=== PATIENT | male | born 1935 | race Caucasian/White ===

== ENCOUNTER 2020-03-16 12:17 | Observation (INO) | payer MEDICARE, SELFPAY ==
[2020-03-15 10:15] VITALS: BMI 26.3
[2020-03-16] VITALS (18 sets, daily range): BP systolic 140–192; BP diastolic 68–92; PULSE 57–74; RESP 7–21; TEMP 36.6–36.7; O2SAT 93–97
[2020-03-16] MEDS: diphenhydrAMINE 50 mg Capsule PO (07:44)
[2020-03-16 07:54] LABS: Basophils % 0.6 %; Eosinophils # 0.1 10^3/uL (0.0-0.8); Eosinophils % 1.5 %; Hemoglobin 14.6 g/dL (11.7-16.6); Lymphocytes # 2.1 10^3/uL (0.8-4.8); Lymphocytes % 31.4 %; Mean Corpuscular Hemoglobin 32.4 pg (28.0-34.0); Mean Corpuscular Volume 95.6 fL (80-94); Monocytes # 0.6 10^3/uL (0.2-0.9); Monocytes % 8.6 %; Neutrophils # 3.9 10^3/uL (1.8-7.7); Neutrophils % 57.6 %; Nucleated Red Blood Cells % 0 %; Platelet Count 226 10^3/cmm (130-400); Red Cell Distribution Width 13.9 % (12.1-15.1); White Blood Count 6.7 10^3/uL (4.0-10.0)
[2020-03-16 08:22] LABS: Anion Gap 17.9 (5-19); Blood Urea Nitrogen 17 mg/dL (8-23); Calcium 9.6 mg/dL (8.5-10.5); Carbon Dioxide 23 mmol/L (22-29); Chloride 103 mmol/L (98-107); Glucose 107 mg/dL (65-115); Osmolality Calculated 287 mOsm/kg (285-295); Potassium 3.9 mmol/L (3.5-5.1); Sodium 140 mmol/L (136-145)
--- NOTE | 2020-03-16 08:30 | XACV_ITS ---
Wt: 76 kg BSA: 1.91 m2 Any Known Allergies: No known allergies Gender: Male : 1935 Exam Type: Invasive Peripheral Vascular Procedure(s): Procedure Description: Peripheral Cath Diagnostic Procedure Procedure Description: Abdominal aortic angiography Procedure Description: Lower extremities' angiography Exam Priority: Routine Abdominal Diagnostic Findings The abdominal aorta is severely diffusely diseased with heavily laden plaque throughout, mild aneurysmal dilatations and heavy calcification. Lower Extremity Diagnostic Findings Elderly patient with claudication on the right. Noninvasive studies abnormal. Recommended for angiography. Patient is Fulton grade 1, category 3; Maryam stage II. On the right, there is a 60% eccentric stenosis of the ostium of the right common iliac. Otherwise there is moderate diffuse plaquing. The vessel is heavily calcified. The internal iliac is occluded at the origin. The external iliac is patent but heavily calcified and mildly diffusely diseased. The common femoral is heavily calcified and mildly diffusely diseased with no significant stenoses. The superficial femoral artery is occluded at its origin. The profunda femoris is patent and provides the collateral flow to the distal portion of the leg. The superficial femoral artery reconstitutes via collaterals in the distal leg. The popliteal is normal. The anterior tibial is normal and extends all the way to the ankle. The tibial peroneal trunk is patent. The posterior tibial is normal and extends all the way to the ankle. The peroneal is a very small vessel but is patent at least two th[address] way down the leg. Lower Extremity Interventional Findings I was able to pass a wire down the vessel and most likely into the superficial femoral artery from the left common femoral artery around the aortic bifurcation and down. Unfortunately, I was unable to pass a long sheath around the aortic bifurcation due to the heavy calcification, diffuse disease and the eccentric stenosis of the ostial right common iliac. Conclusions Occluded SFA on the right. Heavily calcified and severely diffusely diseased vessels. Unable to pass a long sheath around the aortic bifurcation. Recommendations Return for a popliteal approach on the right. Hemodynamic Data Phase:Rest AO : 139.0 mmHg / 55.0 mmHg ( 88.0 mmHg ) @ 4:15:00 AM 145.0 mmHg / 61.0 mmHg ( 94.0 mmHg ) @ 4:41:00 AM Access Site Site: Left Femoral artery Sheath Size: 6 Fr Hemost... Method: Manual Compression Hemost... Success: Successful Procedure Details Findings Procedure Consent Obtained. Pre-Procedure Time Out. Identified patient by full name and date of as verbalized by the patient/guarantor. Does the consent match the physician's order: Yes. Accurate & Complete Informed Consent: Yes. Inpatient/Outpatient History & Physical on Chart: Yes. If H&P is completed, is and addenduem needed: No; If yes, is the addendum complete: N/A. Visualize and Verify Site with Patient/Guarantor: N/A. Relevant Radiology Images available: N/A. Pre-op teaching completed and patient verbalized understanding. The risks, benefits, and alternatives of sedation and/or procedure were discussed by physician. The patient agrees to continue. Procedure started. Correct patient, site and procedure confirmed by cath team. PERRLA. Strong, equal hand tracer bullet section supervisor bilaterally. Lungs clear x 5 lobes. IV Site on Arrival: 18 gauge in the right forearm. IV Fluids: 0.9% NaCl at KVO. 0 mL infused prior to terrazzo laborer. Pre Procedural Pulses: bilateral dorsalis pedis was Doppled. Pre Procedural Pulses: bilateral posterior tibial was Doppled. Pre Procedural Pulses: right radial was 2+. Oxygen started at 2liters/min via nasal canula. bilateral groins was prepped with chloroprep then draped in the usual sterile fashion. Baseline sample Acquired. HR: 51 BPM. Physician arrived. Equipment: Peripheral. Cardiac Cath Pack. ACIST Manifold Kit Model BT 2000. Heparinized Saline (2 units/mL), 1000 mL bag. Inventory is JJ 6F 11cm Funmilayo Plus Sheath. Physician scrubbed in. Immediate Pre-Procedure Time Out. Correct Patient: Yes; Correct Procedure: Yes; Correct Site: Yes; Correct Patient Position: Yes; Correct Supplies: Yes; Dried Flammable Prep: Yes; Blood Products Available: N/A;. Lidocaine 1% infiltrated to the left groin. Arterial access obtained. A CORDIS 5F UF catheter 65cm was advanced over the wire and used for Abdominal aortogram. Abdominal aortogram performed in AP @ 10 mL/sec for a total of 30 mL. Glidewire inserted. Catheter removed over the glide wire. A JJ 5F RIM 65 cm Diagnostic Catheter was advanced over the wire and used for Lower extremity arteriography. Wrist reminders placed bilaterally on patient. Right leg runoff 10 ml for total of 30 ml. Glidewire inserted. Catheter removed over the glide wire. A 6FrFr IM catheter in over wire. Catheter removed over the glide wire. Short 6 fr sheath exchanged for long 45 cm 6 fr Flexor sheath. Flexor sheath unable to advance. Removed over wire. Short 6 fr sheath re-inserted. Left leg runoff through sheath 10 ml for total of 30 ml. Physician scrubbed out. A Manual Compression was successful obtaining hemostatsis at the Left Femoral artery insertion site. Sheath(s) removed and manual pressure held until hemostasis was achieved. Sterile 4x4 and Op-site applied to the puncture site. No oozing or hematoma noted. Post sheath removal instructions were given and the patient verbalized understanding. Post Procedure: Pulses reassessed and unchanged. PERRLA. Strong, equal hand tracer bullet section supervisor bilaterally. No VTE prophylaxis required. Total IV fluids: 56.65 mL. Contrast type used: Visipaque 320 mgI/mL, 500 mL bottle. Complications: none. Post-op diagnosis: PAD. Estimated blood loss: 5mL-10mL. Procedure completed. Medication's Wasted: Lidocaine 1% = 10 mL. Medication's Wasted: Heparin = 1000 units. Medication's Wasted: Other = fentanyl 75 mcg. Patient transferred by stretcher to CPRU. Vital chart was stopped. Procedure Medications Start: 9:03 AM Stop: 9:03 AM Medication: Versed Amount: 1 mg Route: I.V. Start: 9:04 AM Stop: 9:04 AM Medication: Fentanyl Amount: 25 mcg Route: I.V. Start: 9:39 AM Stop: 9:39 AM Medication: Versed Amount: 1 mg Route: I.V. I, the attending physician, have reviewed and verified all procedure medications. Yes, all medications given per verbal order History/Risk Factors Hypertension: Yes Dyslipidemia: Yes Peripheral Arterial Disease (PAD): Yes Myocardial Infarction ([place]): No Obesity: No Renal Disease: Yes Tobacco Use: Former Prior Interventions PCI: No CABG: Yes Valve Surgery: No Report Signatures Finalized by:Dr. Heriberto Devries MD on 03/16/2020 10:12:44 AM
--- NOTE | 2020-03-16 10:15 | SUR.PHASEI ---
POST CATH NOTE Patient returned to CPRU for holding while awaiting ICU bed cleaning. Assessments and vital record per flowsheet. Stable condition. No s/s of active bleed or Hematoma. Post procedure instructions went over with the pateint- verbalized understanding. Dr Devries in to discuss findings. States he has notified the family reguarding patient's condition. Call light within reach. Informed to call for needs.
--- NOTE | 2020-03-16 11:37 | SUR.PHASEI ---
REPORT/TRANSFER Patient ready to go to ICU 10. Report off to Lilia MIGUEL. Transferred via bed.
[2020-03-16] MEDS: sodium chloride 0.45% 1,000 ML 100 ML IV (12:21)
[2020-03-16] MEDS: hyDRALAzine 20 mg/mL INJ 1 mL 10 MG IVP ×2 (13:33→14:46)
--- NOTE | 2020-03-16 16:15 | PC.NURSE ---
ambulation Patient up and ambulated in the hallway with SBA of this nurse. He tolerated well. Notified Dr. Devries of BP 140/92. He gave okay to discharge.
--- NOTE | 2020-03-16 16:52 | PC.NURSE ---
discharge Patient instructed on post cath site care and restrictions. Patient verbalized understanding. Patient taken to [employer] vehicle via wheelchair. Patient tolerated well.
== END 2020-03-16 16:45 | disposition home or self-care (01) ==
LOC: ICU 12:18
PROVIDERS: Admitting Provider Internal Medicine Cardiovascular Disease; PCP Family Medicine; Visit Provider Internal Medicine Cardiovascular Disease
DX: I25.10 Atherosclerotic heart disease of native coronary artery without angina pectoris (principal); I35.1 Nonrheumatic aortic (valve) insufficiency; I73.9 Peripheral vascular disease, unspecified; I65.29 Occlusion and stenosis of unspecified carotid artery; E78.00 Pure hypercholesterolemia, unspecified; Z95.1 Presence of aortocoronary bypass graft; N52.1 Erectile dysfunction due to diseases classified elsewhere; F03.90 Unspecified dementia, unspecified severity, without behavioral disturbance, psychotic disturbance, mood disturbance, and anxiety; I12.9 Hypertensive chronic kidney disease with stage 1 through stage 4 chronic kidney disease, or unspecified chronic kidney disease; N18.9 Chronic kidney disease, unspecified; Z86.73 Personal history of transient ischemic attack (TIA), and cerebral infarction without residual deficits; J44.9 Chronic obstructive pulmonary disease, unspecified; Z79.82 Long term (current) use of aspirin; N40.0 Benign prostatic hyperplasia without lower urinary tract symptoms; Z82.49 Family history of ischemic heart disease and other diseases of the circulatory system; Z83.3 Family history of diabetes mellitus; Z82.3 Family history of stroke; Z87.891 Personal history of nicotine dependence
CPT/HCPCS: 36415; 75625; 75716; 80048; 85025; 96375; C1769; C1887; C1894; G0378; J0360; J1644; J2001; J2250; J3010; J7030; Q0163; Q9967

== ENCOUNTER → 2020-04-07 10:25 | Outpatient (BNVA) | payer MEDICARE, SELFPAY | PROVIDERS: PCP Family Medicine; Visit Provider Nurse Practitioner Family | DX: I73.9 Peripheral vascular disease, unspecified (principal); Z87.891 Personal history of nicotine dependence | CPT/HCPCS: 80048 ==

== ENCOUNTER 2020-06-13 10:48 | Outpatient (CLI) | payer OTHER, MEDICARE, SELFPAY ==
--- NOTE | 2020-06-13 11:00 | USCV_ITS ---
Mahamed Mello Age: 84 Gender: M : 1935 Exam Date: 06/13/2020 11:07 Ordering Phys: Jose Campo M.D ([email or web address]) Technologist: Milli Nunez [place] [facility] [place]UD[place] Risk Factors: Previous Vascular Surgery: RIGHT LEFT BP: 126.0 / BP: 134.0/ 0 0 Waveform Velocity (cm/s) Velocity (cm/s) Waveform Biphasic 103.8 Iliac Prox 80.8 Biphasic Biphasic 96.5 Iliac Mid 116.1 Biphasic Biphasic 112.3 Iliac Distal 124.7 Biphasic Biphasic 86.5 LOGISTICS SYSTEM ENGINEER 291.9 Biphasic Monophasic 396.0 SFA Prox 102.7 Biphasic Monophasic 68.7 SFA Mid 139.8 Biphasic Monophasic 56.8 SFA Dist 83.2 Biphasic Monophasic 30.2 POP 50.3 Biphasic Monophasic 34.8 PRACTICE ADMINISTRATOR 44.5 Biphasic Monophasic 37.5 DPA 55.9 Biphasic 0.6 MARIA E 1.0 FINDINGS Heavy dense irregular plaques at the proximal superficial femoral artery on the right side with color-flow turbulenceand markedly elevated Doppler flow velocity Color flow turbulence and elevated velocity in the left common femoral artery Diminished resting MARIA E on the right side with a normal resting MARIA E on the left side CONCLUSIONS 1. Features suggestive of high-grade stenosis at the level of the proximal superficial femoral artery on the right side. (Resting MARIA E 0.6). 2. Features suggestive of greater than 50% stenosis in the left common femoral artery. Compared to the study from 03/04/2020, there is some improvement of the resting MARIA E the left side(from 0.78 to 1.0), with no significant change in the MARIA E on the right side Dr Edwina Fairchild MD [facility] (Electronically Signed) Final Date: 13 June 2020 17:52 S
== END 2020-06-13 10:49 | disposition home or self-care (01) ==
LOC: RAD 10:54
PROVIDERS: PCP Family Medicine; Visit Provider Internal Medicine
DX: I73.9 Peripheral vascular disease, unspecified (principal)
CPT/HCPCS: 93925

== ENCOUNTER 2020-06-16 12:54 | Outpatient (CLI) | payer SELFPAY | END 2020-06-16 12:55 | disposition home or self-care (01) | LOC: LAB 12:58 | PROVIDERS: PCP Family Medicine; Visit Provider Surgery | DX: R22.0 Localized swelling, mass and lump, head (principal) | CPT/HCPCS: 87635 ==

== ENCOUNTER 2020-06-17 11:26 | Outpatient (CLI) | payer OTHER, MEDICARE, SELFPAY ==
--- NOTE | 2020-06-17 12:00 | CTR_ITS ---
PROCEDURE INFORMATION: Exam: CTA Angiogram of the Abdominal Aorta and Bilateral Lower Extremities (Run-off) With IV Contrast Exam date and time: 06/17/2020 11:46 AM Age: 84 years old Clinical indication: Pain; Other: Claudication of both lower extremities; Prior surgery; Surgery type: Appy TECHNIQUE: Imaging protocol: CT angiogram of the abdominal aorta, pelvis and bilateral lower extremities with IV iodinated contrast. 3D rendering (Not supervised by radiologist): MIP and/or 3D reconstructed images were created by the technologist. Radiation optimization: All CT scans at this facility use at least one of these dose optimization techniques: automated exposure control; mA and/or kV adjustment per patient size (includes targeted exams where dose is matched to clinical indication); or iterative reconstruction. Contrast material: VISIPAQUE; Contrast volume: 95 ml; Contrast route: INTRAVENOUS (IV); COMPARISON: No relevant prior studies available. RADIATION DOSE METRICS: Total DLP (mGy-cm): 1279.75 FINDINGS: Aorta: The aorta demonstrates severe atherosclerotic calcification and ectasia. There is ectasia of the distal abdominal aorta which measures 2.5 cm in maximum diameter. There is extensive atherosclerotic calcified plaque but no evidence of significant stenosis in the aorta. Celiac trunk and mesenteric arteries: There is atherosclerotic plaque at the origin of the superior mesenteric artery without stenosis. There is atherosclerotic plaque at the origin of the celiac artery with focal stenosis suspected at the origin. Renal arteries: There is a single renal artery on each side. There is extensive calcified atherosclerotic plaque in the proximal left renal artery with stenosis in the 50-60% range. Right iliac arteries: There is extensive hard plaque in the right common iliac artery with 60-70% stenosis proximally near the origin. There is extensive atherosclerotic plaque in the right internal iliac artery with severe stenosis proximally. There is plaque in the right external iliac artery without significant stenosis. There is extensive calcified atherosclerotic plaque in the proximal right internal iliac artery with stenosis in the 50-60% range.. Right femoral/popliteal arteries: There is atherosclerotic plaque along the posterior aspect of the right common femoral artery. There is extensive hard plaque at the bifurcation with severe stenosis bordering on occlusion at the origin of the right superficial femoral artery. There are scattered areas of calcified plaque along the right superficial femoral artery with multiple areas of stenosis with approximately 75% stenosis distally within the abductor canal. There are scattered areas of calcified atherosclerotic plaque in the right popliteal artery without stenosis. Right infrapopliteal arteries: There is 3 vessel runoff below the right knee. There is calcified plaque in the proximal right anterior tibial artery with approximately 50% stenosis there is severe stenosis in the mid anterior tibial artery without occlusion and the right anterior tibial artery is patent to the foot where it supplies the dorsalis pedis artery. Right tibial peroneal trunk is severely stenotic approximately gives rise to patent peroneal artery which continues to the level of the ankle and mildly stenotic posterior tibial artery which is patent to the ankle and supplies the foot via the plantar arcade. Left iliac arteries: There is extensive atherosclerotic plaque along the left common iliac artery with 60-75% stenosis proximally. There is extensive atherosclerotic plaque in the proximal left internal iliac artery with moderate stenosis proximally. There is minimal plaque in the left external iliac artery without significant stenosis. There is severe narrowing of the distal left common iliac artery with 60-75% narrowing. Left femoral/popliteal arteries: There is scattered atherosclerotic plaque along the left superficial femoral artery with severe stenosis distally at the level of the abductor canal. There is mild atherosclerotic plaque in the left popliteal artery without significant stenosis. The left profundus femoral artery is patent. Left infrapopliteal arteries: There is 3 vessel runoff below the left knee. There is severe stenosis in the proximal left anterior tibial artery which is otherwise patent and continues to the foot. There is some mild atherosclerotic plaque along the left posterior tibial artery but without significant stenosis. The posterior tibial artery is patent and supplies the foot via the plantar arcade. There is mild atherosclerotic calcification along the left peroneal artery which is patent to the level of the ankle where it manage shows. Lungs: There is a calcified granuloma at the left lung base. Some mild interstitial prominence the right lung base. Liver: There is a small cyst in the left lobe liver. Gallbladder and bile ducts: The gallbladder is normal. Pancreas: The pancreas is normal. Spleen: The spleen demonstrates punctate calcifications, consistent with remote granulomatous organism exposure. Adrenals: The adrenal glands are normal. Kidneys and ureters: There are 2 small benign cysts in the lower pole left kidney. There is mild cortical atrophy of the left kidney. The right kidney is normal. There is no evidence of hydronephrosis. There is no evidence of renal or ureteral calcifications. Stomach and bowel: Unremarkable. No obstruction. No mucosal thickening. Appendix: Not identified Bladder: Unremarkable. No mass. Reproductive: Unremarkable as visualized. Intraperitoneal space: Unremarkable. No free air. No significant fluid collection. Lymph nodes: No lymphadenopathy. Bones/joints: The lumbar spine demonstrates moderate degenerative changes at multiple levels. There is compression deformity of the superior endplate of L4 which appears chronic. There may be stenosis at L3-L4 and L4-L5. Soft tissues: Unremarkable. Other findings: There is no evidence of colitis/diverticulitis. CT/CT angio abd aorta runof 68159 IMPRESSION: 1. Extensive atherosclerotic disease as described including severe stenosis in the proximal superficial femoral arteries as described. There is no major vascular occlusion. 2. Bilateral external iliac stenosis. 3. Bilateral renal artery stenosis. 4. Possible stenosis in the origin of the celiac artery. 5. Degenerative changes in the lumbar spine with multilevel stenosis. Radiation Dose CTDIVOL = (mGy): DLP = 1279.75 (mGy-cm)
[2020-06-17 12:39] LABS: Blood Urea Nitrogen 23 mg/dL (8-23)
[2020-06-17] MEDS: iodixanol 320 mg/mL 100mL Btl IV (12:54)
== END 2020-06-17 11:27 | disposition home or self-care (01) ==
PROVIDERS: PCP Family Medicine; Visit Provider Internal Medicine
DX: I73.9 Peripheral vascular disease, unspecified (principal); I70.1 Atherosclerosis of renal artery; I70.90 Unspecified atherosclerosis
CPT/HCPCS: 75635; 82565; 84520

== ENCOUNTER 2020-06-20 10:12 | Day surgery (SDC) | payer OTHER, SELFPAY ==
[2020-06-19 08:31] VITALS: BMI 26.2
[2020-06-20 10:44] VITALS: BP 171/76; PULSE 76; RESP 18; TEMP 37.1; O2SAT 96
[2020-06-20] MEDS: sodium chloride 0.9% 1,000 ML 30 ML IV (10:56)
--- NOTE | 2020-06-20 11:17 | P.ANESASSM_ITS ---
Pre-Anesthetic Assessment Pre-Anesthetic Assessment: Height/Weight: Height 1.7 m Weight 75.75 kg Temp Pulse Resp BP Pulse Ox 98.7 F 76 18 171/76 96 06/20/20 10:44 06/20/20 10:44 06/20/20 10:44 06/20/20 10:44 06/20/20 10:44 Preop Diagnosis: Scalp Mass Proposed Procedure: Operation Date: 06/20/20 11:35 Proposed Procedures p Excision of scalp mass 16417 R22.0(Not Applicable) - Rick Hernández MD Was Beta Emely taken within 24 hours: Yes Last intake: Intake Last Liquid Date 06/19/20 Last Solid Date 06/19/20 Social: Social History: No alcohol and No tobacco Exam: Pre-Anes Outpt Exam: alert, oriented x 3, clear to auscultation bilaterally and regular rate & rhythm Airway: Submandibular: WNL Cervical ROM: WNL Dentition: Full History/ROS: No significant history except as noted Pulmonary: Pulmonary: None reported CV/HEM: CV/HEM: CAD and RI : : Chronic renal Insufficiency Hepatic: Hepatic: None reported GI: GI: None reported Metabolic: Comments: Gout Musc/skel: Musc/skel: None reported Neuropsych: Neuropsych: None reported Anesthetic Plan: ASA status: 3 Anesthesia: MAC Meds/Allergies Current Medications: Current Medications Generic Name Dose Route Start Last Admin Trade Name Freq PRN Reason Stop Dose Admin Sodium Chloride 1,000 mls @ 30 ml s/hr 06/20/20 08:15 06/20/20 10:56 Sodium Chloride 0.9% IV 06/21/20 08:14 30 mls/hr .Q24H EMMANUEL Administration PFSH Anesthesia PFSH: Medical History Anemia Aortic valve insufficiency Aortic valve sclerosis BPH (benign prostatic hyperplasia) Carotid stenosis, asymptomatic Chronic kidney disease (CKD) Claudication of both lower extremities COPD (chronic obstructive pulmonary disease) CVA (cerebral vascular accident) Dementia Erectile disorder 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 GERD (gastroesophageal reflux disease) Gout HTN (hypertension) Hypercholesteremia PVD (peripheral vascular disease) TMJ (temporomandibular joint syndrome) Surgical History H/O: hemorrhoidectomy History of appendectomy S/P CABG x 4 Family History Father CAD (coronary artery disease) Mother Diabetes Stroke Denies family history of Anesthesia complication Bleeding disorder Social History Smoking and tobacco status: former smoker Alcohol intake: never Household members: spouse Marital status: service: Yes branch: [employer] Current occupational status: retired Current gender identity: Male Amairani/Confucianist: [employer] Data Anesthesia Cardiac Studies: No Data to Display
--- NOTE | 2020-06-20 12:19 | W.PM.OPSUD ---
Surgery/Procedure H&P Update DATE OF PROCEDURE: June 20, 2020 DATE H&P PERFORMED: 06/09/20 H&P UPDATE INFORMATION: I have reviewed H&P completed within last 30 days, I have examined patient prior to procedure and No changes to prior documentation PREOP DIAGNOSIS: Scalp Mass PRIMARY INDICATION FOR PROCEDURE: The same PLANNED PROCEDURE: Operation Date: 06/20/20 11:35 Proposed Procedures p Excision of scalp mass 19808 R22.0(Not Applicable) - Rick Hernández MD
[2020-06-20] MEDS: lidocaine 2% INJ 20 mL INJECTION (12:55)
[2020-06-20] MEDS: neomycin-poly-bacitracin oint 28 gm 28 APPLIC (12:58)
--- NOTE | 2020-06-20 12:59 | PM.OP ---
Operative Report Date of procedure: June 20, 2020 Pre-op Diagnosis: Scalp Mass Post-op diagnosis: other (Sebaceous cyst 2 x 2 cm) Procedure Done: Excision of Scalp Mass Specimens removed/disposition: Scalp Mass Surgeon: Rick Hernández Filter Press Supervisor: instructional media services technician [place] and medical student Tamika Anesthesia: MAC Estimated blood loss (mL): 10 Complications: No immediate complication Condition: stable Disposition: same day Brief History: This is a pleasant 84 years old gentleman with history of symptomatic scalp mass. Presented to my office for further evaluation and potential excision. After thorough history physical examination and reviewing the CT scan that I did order to make sure that there is no intracranial extension and there was not. I did veterans rehabilitation counselor the patient for excision of the scalp mass. Informed consent per chart. Procedure: After identifying the patient holding area, the scalp mass was marked before the procedure by myself, patient was then taken to the operative suite, was placed in supine IV propofol was infused by the anesthesia, prophylactic IV antibiotics were given per protocol, all pressure points were padded. Prep and drape of the scalp lesion was done under the usual sterile technique Time-out was done verifying the patient's name/date of /planned procedure and destination after the procedure, all were in agreement. Lidocaine 2% was injected at the site of the incision that prior to the injection aspiration was done to make sure no injection is going into any vessel, After palpation of the scalp mass, I did a longitudinal elliptical incision on top of the mass, dissection was carried after the skin incision all the way to the periosteum, clinically clearly the patient does have a large sebaceous cyst measures about 2 x 2 cm, was excised and passed to the circulating nurse for pathology. Thorough irrigation of the cavity was done and hemostasis, followed by 0 Prolene sutures for mass skin closure. Followed by triple antibiotic ointment and dry pressure dresing Patient tolerated the procedure well, count of instruments, needles and sponges were completed at the end of the procedure. And then patient was taken to the recovery area in stable condition. I Was present for the whole entire procedure
[2020-06-20 13:07] VITALS: BP 125/57; PULSE 60; RESP 18; TEMP 36.5; O2SAT 93
[2020-06-20 13:42] VITALS: BP 122/60; PULSE 65; RESP 18; O2SAT 95
--- NOTE | 2020-06-20 15:33 | ANE.PACU2 ---
Inpatient post-anesthesia follow up: Airway intact: Yes Vital signs: Temperature 97.7 F Pulse Rate 65 Respiratory Rate 18 Blood Pressure 122/60 Pulse Oximetry 95 Oxygen Delivery Me thod Room Air Oxygen Flow Rate Fraction of Inspir ed Oxygen Hydration adequate: No Nausea and vomiting: Yes Pain level: 3
== END 2020-06-20 14:00 | disposition home or self-care (01) ==
PROVIDERS: PCP Family Medicine; Visit Provider Surgery
PROC: (CPT 11422; principal; 2020-06-20 11:25)
DX: L72.3 Sebaceous cyst (principal); I25.10 Atherosclerotic heart disease of native coronary artery without angina pectoris; I25.2 Old myocardial infarction; N40.0 Benign prostatic hyperplasia without lower urinary tract symptoms; Z86.73 Personal history of transient ischemic attack (TIA), and cerebral infarction without residual deficits; F03.90 Unspecified dementia, unspecified severity, without behavioral disturbance, psychotic disturbance, mood disturbance, and anxiety; I12.9 Hypertensive chronic kidney disease with stage 1 through stage 4 chronic kidney disease, or unspecified chronic kidney disease; N18.9 Chronic kidney disease, unspecified; Z95.1 Presence of aortocoronary bypass graft; Z87.891 Personal history of nicotine dependence; Z79.82 Long term (current) use of aspirin
CPT/HCPCS: 11422; 12345; 88304; J0690; J2704; J7030

== ENCOUNTER 2020-07-09 13:47 | Outpatient (CLI) | payer OTHER, MEDICARE, SELFPAY ==
[2020-07-09 14:12] LABS: Basophils % 0.4 %; Eosinophils # 0.1 10^3/uL (0.0-0.8); Eosinophils % 1.2 %; Hematocrit 42.2 % (42.0-52.0); Hemoglobin 14.2 g/dL (11.7-16.6); Lymphocytes # 2.9 10^3/uL (0.8-4.8); Lymphocytes % 39.3 %; Mean Corpuscular HGB Conc 33.6 g/dL (30.0-36.0); Mean Corpuscular Hemoglobin 33.5 pg (28.0-34.0); Mean Corpuscular Volume 99.5 fL (80-94); Mean Platelet Volume 11.3 fL (7.4-10.4); Monocytes # 0.6 10^3/uL (0.2-0.9); Monocytes % 8.6 %; Neutrophils # 3.73 10^3/uL (1.8-7.7); Neutrophils % 50.5 %; Nucleated Red Blood Cells % 0 %; Platelet Count 196 10^3/cmm (130-400); Red Blood Count 4.24 10^6/uL (4.1-5.3); Red Cell Distribution Width 13.6 % (12.1-15.1); White Blood Count 7.4 10^3/uL (4.0-10.0)
[2020-07-09 14:23] LABS: INR 0.91 (0.8-1.2)
[2020-07-09 14:32] LABS: Anion Gap 15.9 (5-19); Blood Urea Nitrogen 21 mg/dL (8-23); Carbon Dioxide 22 mmol/L (22-29); Chloride 105 mmol/L (98-107); Glucose 123 mg/dL (65-115); Osmolality Calculated 292 mOsm/kg (285-295); Potassium 3.9 mmol/L (3.5-5.1); Sodium 139 mmol/L (136-145)
== END 2020-07-09 13:48 | disposition home or self-care (01) ==
LOC: LAB 13:50
PROVIDERS: PCP Family Medicine; Visit Provider Internal Medicine
DX: I73.9 Peripheral vascular disease, unspecified (principal)
CPT/HCPCS: 36415; 80048; 85025; 85610; 87635

== ENCOUNTER 2020-07-13 07:46 | Day surgery (SDC) | payer OTHER, MEDICARE, SELFPAY ==
[2020-07-12 11:11] VITALS: BMI 25.9
[2020-07-13] VITALS (12 sets, daily range): BP systolic 103–148; BP diastolic 55–100; PULSE 54–77; RESP 10–18; TEMP 36.4–36.5; O2SAT 79–96
--- NOTE | 2020-07-13 07:30 | XACV_ITS ---
Wt: 75 kg BSA: 1.90 m2 Any Known Allergies: No known allergies Gender: Male : 1935 Exam Type: Invasive Peripheral Vascular Procedure(s): Procedure Description: Peripheral Cath Diagnostic Procedure Procedure Description: Abdominal aortic angiography Procedure Description: Lower extremities' angiography Exam Priority: Routine Lower Extremity Diagnostic Findings Abdominal angiogram: Patent renal arteries. There is a calcified plaque in distal aorta. Right common iliac artery: This artery has diffuse disease. There is a calcified 40 to 50% ostial lesion. Serial 20 to 30% stenosis was noted in common iliac artery. We performed catheter pullback on the ostial right common iliac artery stenosis, which showed no significant gradient across the stenosis. Left common iliac artery: Has 20 to 30% diffuse lesions. No significant blockages noted.. Right lower extremity angiogram: External iliac artery: Patent Common femoral artery: Has diffuse calcified disease, no significant stenosis is noted. Profunda: Patent Superficial femoral artery: Has mild to moderate ostial SFA disease. No significant stenosis was noted. Popliteal artery: Patent Anterior tibial artery: AT has occlusion in the mid segment. It is reconstituted via collaterals. TP segment: Patent Peroneal artery: Patent. Posterior tibial artery: Patent without significant stenosis. . Left lower extremity angiogram: External iliac artery: Patent Common femoral artery: Patent Profunda: Patent Superficial femoral artery: Has moderate mid SFA stenosis. No significant stenosis is noted. Popliteal artery: Patent Anterior tibial artery: Patent TP segment: Patent Peroneal artery: Patent. Posterior tibial artery: Patent without significant stenosis. . Conclusions Moderate ostial right common iliac calcified stenosis. No significant gradient on catheter pullback. Significant right anterior tibial diffuse disease. Segment supplied via collaterals. At least two-vessel runoff to foot on right side. No significant disease on left lower extremity. Three-vessel runoff on the left side. Recommendations Continue current medical management and risk factor modification. Optimize medical therapy. We will initiate cilostazol. Hemodynamic Data Phase:Rest AO : 115.0 / 42.0 ( 65.0 ) @ 4:09:00 AM 76.0 / 53.0 ( 64.0 ) @ 4:22:00 AM 77.0 / 55.0 ( 66.0 ) @ 4:23:00 AM 76.0 / 53.0 ( 67.0 ) @ 4:23:00 AM 83.0 / 58.0 ( 66.0 ) @ 4:23:00 AM 78.0 / 57.0 ( 67.0 ) @ 4:23:00 AM 122.0 / 52.0 ( 80.0 ) @ 4:29:00 AM Access Site Site: Left Femoral artery Sheath Size: 6 Fr Hemost... Success: Unsuccessful Procedure Details Findings Procedure Consent Obtained. Pre-Procedure Time Out. Identified patient by full name and date of as verbalized by the patient/guarantor. Does the consent match the physician's order: Yes. Accurate & Complete Informed Consent: Yes. Inpatient/Outpatient History & Physical on Chart: Yes. If H&P is completed, is and addenduem needed: No; If yes, is the addendum complete: N/A. Visualize and Verify Site with Patient/Guarantor: N/A. Relevant Radiology Images available: N/A. Pre-op teaching completed and patient verbalized understanding. The risks, benefits, and alternatives of sedation and/or procedure were discussed by physician. The patient agrees to continue. Procedure started. Correct patient, site and procedure confirmed by cath team. PERRLA. 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 Lungs clear x 5 lobes. IV Site on Arrival: 18 gauge in the left anticubital. IV Fluids: 0.9% NaCl at KVO. 0 mL infused prior to clinical laboratory medical director. Pre Procedural Pulses: bilateral dorsalis pedis was Doppled. Pre Procedural Pulses: bilateral posterior tibial was Doppled. Pre Procedural Pulses: bilateral radial was 3+. Oxygen started at 2liters/min via nasal canula. bilateral groins was prepped with chloroprep then draped in the usual sterile fashion. Physician arrived. Equipment: Peripheral. Baseline sample Acquired. HR: 89 BPM. Physician scrubbed in. Immediate Pre-Procedure Time Out. Correct Patient: Yes; Correct Procedure: Yes; Correct Site: Yes; Correct Patient Position: Yes; Correct Supplies: Yes; Dried Flammable Prep: Yes; Blood Products Available: N/A;. Cardiac Cath Pack. ACIST Manifold Kit Model BT 2000. Heparinized Saline (2 units/mL), 1000 mL bag. Inventory is JJ 6F 11cm Funmilayo Plus Sheath. Lidocaine 1% infiltrated to the left groin. Arterial access obtained with micropuncture set. Hand injection. Glidewire inserted. A KeTech 5F UF catheter 65cm was advanced over the wire and used for Abdominal aortogram. Glidewire inserted. Catheter removed over the glide wire. A JJ 5F RIM 65 cm Diagnostic Catheter was advanced over the wire and used for Lower extremity arteriography. Glidewire out. Right leg runoff 10 ml for total of 30 ml. Catheter removed over the glide wire. Left leg runoff 10 ml for total of 30 ml. MYNX closure deviced was successfully used to remove sheath and close the artery. MYNX lot # [id number] exp date . Post Procedure: Pulses reassessed and unchanged. PERRLA. 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 No VTE prophylaxis required. Medication's Wasted: Lidocaine 1% = 8 mL. Medication's Wasted: Heparin = 6000 units. Medication's Wasted: Other = fentanyl 50 mcg. Total IV fluids: 41.4 mL. Contrast type used: Visipaque 320 mgI/mL, 500 mL bottle. Post-op diagnosis: moderate PAD. Complications: none. Estimated blood loss: 5mL-10mL. Procedure completed. Patient transferred by bed to 1st floor. Vital chart was stopped. Procedure Medications Start: 9:02 AM Stop: 9:02 AM Medication: Versed Amount: 1 mg Route: I.V. Start: 9:02 AM Stop: 9:02 AM Medication: Fentanyl Amount: 50 mcg Route: I.V. Start: 9:28 AM Stop: 9:28 AM Medication: Versed Amount: 1 mg Route: I.V. History/Risk Factors Hypertension: Yes Dyslipidemia: Yes Peripheral Arterial Disease (PAD): Yes Obesity: No Renal Disease: No Tobacco Use: Former Prior Interventions PCI: No CABG: Yes Valve Surgery: No Report Signatures Finalized by Jose Campo MD on 07/18/2020 10:35 AM
[2020-07-13] MEDS: diphenhydrAMINE 50 mg Capsule PO (07:57)
--- NOTE | 2020-07-13 08:17 | W.PM.OPSUD ---
Surgery/Procedure H&P Update DATE OF PROCEDURE: July 13, 2020 DATE H&P PERFORMED: 07/04/20 H&P UPDATE INFORMATION: I have reviewed H&P completed within last 30 days, I have examined patient prior to procedure and Changes to prior documentation as noted here CHANGES TO PREVIOUS DOCUMENTATION: Patient has been having worsening bilateral leg pains but right is much worse than the right. He is not able to perform his everyday activities without having to rest to relieve the leg pain. He had prior intervention to the right SFA and CTA shows significant SFA disease. We will perform peripheral angiogram with possible intervention. PREOP DIAGNOSIS: Life style limiting claudication/Peripheral arterial disease PRIMARY INDICATION FOR PROCEDURE: Life style limiting claudication/ Severe Peripheral arterial disease PLANNED PROCEDURE: Operation Date: 07/13/20 08:30 Proposed Procedures p Peripheral Diagnostic(Not Applicable) - Jose Campo M.D PATIENT REASSESSED PRIOR TO SEDATION, WITH NO CHANGE NOTED: Yes PHYSICAL EXAM: alert, oriented x 3 and clear to auscultation bilaterally AIRWAY EVAL/ANESTHESIA PLAN: normal airway, ASA III, Risks, benefits & alternatives of sedation and/or procedure discussed and Patient agrees to continue as planned
--- NOTE | 2020-07-13 15:30 | PC.NURSE ---
Patient assisted to walk in hallway. Walker and 2nd vector control assistant available. Patient walked haway down [address] with no c/o pain in legs or feet.
--- NOTE | 2020-07-13 16:00 | PC.NURSE ---
Called patient's son, Prakash, to let him know we were ready for discharge and would help Mr. Mello to dress and bring him out in a wheelchair.
== END 2020-07-13 17:00 | disposition home or self-care (01) ==
LOC: CCL 07:47 → CSU 09:35
PROVIDERS: PCP Family Medicine; Visit Provider Internal Medicine
DX: I70.8 Atherosclerosis of other arteries (principal); I25.10 Atherosclerotic heart disease of native coronary artery without angina pectoris; Z79.82 Long term (current) use of aspirin; Z87.891 Personal history of nicotine dependence; N40.0 Benign prostatic hyperplasia without lower urinary tract symptoms; J44.9 Chronic obstructive pulmonary disease, unspecified; Z86.73 Personal history of transient ischemic attack (TIA), and cerebral infarction without residual deficits; I12.9 Hypertensive chronic kidney disease with stage 1 through stage 4 chronic kidney disease, or unspecified chronic kidney disease; N18.9 Chronic kidney disease, unspecified; Z82.49 Family history of ischemic heart disease and other diseases of the circulatory system; E78.00 Pure hypercholesterolemia, unspecified; F03.90 Unspecified dementia, unspecified severity, without behavioral disturbance, psychotic disturbance, mood disturbance, and anxiety
CPT/HCPCS: 12345; 36415; 75625; 75716; C1760; C1769; C1887; C1894; J1644; J2250; J3010; J7030; Q0163; Q9967

== ENCOUNTER → 2022-07-26 10:27 | Outpatient (BNVA) | payer MEDICARE, SELFPAY | PROVIDERS: PCP Family Medicine; Visit Provider Clinical Nurse Specialist Adult Health | DX: R39.9 Unspecified symptoms and signs involving the genitourinary system (principal); R39.89 Other symptoms and signs involving the genitourinary system; N30.00 Acute cystitis without hematuria | CPT/HCPCS: 81000; 87077; 87086; 87184 ==

== ENCOUNTER 2023-02-02 05:41 | Emergency (ER) | payer OTHER, MEDICARE, SELFPAY ==
[2023-02-02] VITALS (7 sets, daily range): BP systolic 152–172; BP diastolic 69–83; PULSE 57–68; RESP 14–17; TEMP 36.4; O2SAT 94–97; BMI 26.6
--- NOTE | 2023-02-02 05:42 | CTR_ITS ---
PROCEDURE INFORMATION: Exam: CT Head Without Contrast Exam date and time: 02/02/2023 5:59 AM Age: 87 years old Clinical indication: Visual disturbance; Additional info: HTN vision change TECHNIQUE: Imaging protocol: Computed tomography of the head without contrast. Radiation optimization: All CT scans at this facility use at least one of these dose optimization techniques: automated exposure control; mA and/or kV adjustment per patient size (includes targeted exams where dose is matched to clinical indication); or iterative reconstruction. Other technique: STROKE PROTOCOL was implemented. REPORTING DATA: Count of CT and Cardiac NM exams in prior 12 months: This patient has received 0 known CTs and 0 known cardiac nuclear medicine studies in the 12 months prior to the current study. COMPARISON: CT head wo/w con [id number] 05/17/2020 8:20 AM RADIATION DOSE METRICS: Total DLP (mGy-cm): 1246.33 FINDINGS: Brain: No intracranial hemorrhage, edema or other acute abnormality is seen in the brain. There is generalized chronic atrophy with prominence of the ventricles and sulci. 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 Tiny old lacunar infarcts are present along right basal ganglia. No mass effect or midline shift. Cerebral ventricles: The ventricles are prominent consistent with chronic atrophy. Paranasal sinuses: Visualized sinuses are unremarkable. No fluid levels. Mastoid air cells: Visualized mastoid air cells are well aerated. Bones/joints: Unremarkable. No acute fracture. Soft tissues: Unremarkable. CT/CT head wo con* [id number] IMPRESSION: No acute intracranial abnormality. ASSESSMENT: ASPECTS ([place] Stroke Program Early CT Score) is 10.
--- NOTE | 2023-02-02 06:19 | XRR_ITS ---
PROCEDURE INFORMATION: Exam: XR Chest Exam date and time: 02/02/2023 6:35 AM Age: 87 years old Clinical indication: Other: AMS; Prior surgery; Surgery date: 6+ months; Surgery type: Heart TECHNIQUE: Imaging protocol: Radiologic exam of the chest. Views: 1 view. COMPARISON: CR (CHEST, ) 03/15/2021 7:09 PM FINDINGS: Lungs: Unremarkable. No consolidation. Pleural spaces: Unremarkable. No pleural effusion. No pneumothorax. Heart/Mediastinum: The heart is normal for the AP projection. Status post coronary bypass surgery. Bones/joints: Median sternotomy. Old left rib fractures. XR/XR chest 1V portable [id number] IMPRESSION: No acute abnormality.
--- NOTE | 2023-02-02 06:20 | ECG_ITS ---
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 Measurements Intervals [place] Rate: 54 P: 138 DC: 140 QRS: 8 QRSD: 110 T: 128 QT: 512 QTc: 485 Interpretive Statements ECTOPIC ATRIAL BRADYCARDIA POSSIBLE LEFT ATRIAL ENLARGEMENT [-0.1mV P-WAVE IN V1/V2] POSSIBLE LATERAL MYOCARDIAL INFARCTION , OF INDETERMINATE AGE [30 ms Q WAVE IN I/aVL/V5/V6] Compared to ECG 03/15/2021 22:10:07 Bradycardia, nonsinus now present Myocardial infarct finding now present Sinus rhythm no longer present Electronically Signed On 02-02-2023 14:01:09 CDT by Jose Campo M.D. [id number]
--- NOTE | 2023-02-02 06:39 | CTR_ITS ---
PROCEDURE INFORMATION: Exam: CTA Head With Contrast, Arteriography Exam date and time: 02/02/2023 7:04 AM Age: 87 years old Clinical indication: Stroke-like symptoms; Visual disturbance; Additional info: Blurred vision TECHNIQUE: Imaging protocol: Computed tomographic angiography of the head with contrast. Exam focused on the arteries. 3D rendering (Not supervised by radiologist): MIP and/or 3D reconstructed images were created by the technologist. Radiation optimization: All CT scans at this facility use at least one of these dose optimization techniques: automated exposure control; mA and/or kV adjustment per patient size (includes targeted exams where dose is matched to clinical indication); or iterative reconstruction. Contrast material: OMNI 350; Contrast volume: 100 ml; Contrast route: INTRAVENOUS (IV); REPORTING DATA: Count of CT and Cardiac NM exams in prior 12 months: This patient has received 0 known CTs and 0 known cardiac nuclear medicine studies in the 12 months prior to the current study. COMPARISON: CT head wo con* [id number] 02/02/2023 5:59 AM RADIATION DOSE METRICS: Total DLP (mGy-cm): 528.06 FINDINGS: ANTERIOR CIRCULATION: Right internal carotid artery: There is calcification of the right internal carotid siphon with mild stenosis. Right middle cerebral artery: No occlusion or significant stenosis. No aneurysm. Right anterior cerebral artery: No occlusion or significant stenosis. No aneurysm. Left internal carotid artery: There is calcification of the left internal carotid artery with mild stenosis. Left middle cerebral artery: No occlusion or significant stenosis. No aneurysm. Left anterior cerebral artery: No occlusion or significant stenosis. No aneurysm. POSTERIOR CIRCULATION: Right vertebral artery: The distal portion of the right vertebral artery fills retrograde. No aneurysm. Left vertebral artery: No occlusion or significant stenosis. No aneurysm. Basilar artery: No occlusion or significant stenosis. No aneurysm. Right posterior cerebral artery: No occlusion or significant stenosis. No aneurysm. Left posterior cerebral artery: No occlusion or significant stenosis. No aneurysm. Brain: No definite mass, mass effect, or midline shift. Cerebral ventricles: No ventriculomegaly. Bones/joints: Unremarkable. No acute fracture. Soft tissues: Unremarkable. PROCEDURE INFORMATION: Exam: CTA Neck With Contrast Exam date and time: 02/02/2023 7:04 AM Age: 87 years old Clinical indication: Stroke-like symptoms; Visual disturbance; Additional info: Blurred vision TECHNIQUE: Imaging protocol: Computed tomographic angiography of the neck with contrast. 3D rendering (Not supervised by radiologist): MIP and/or 3D reconstructed images were created by the technologist. Radiation optimization: All CT scans at this facility use at least one of these dose optimization techniques: automated exposure control; mA and/or kV adjustment per patient size (includes targeted exams where dose is matched to clinical indication); or iterative reconstruction. Contrast material: OMNI 350; Contrast volume: 100 ml; Contrast route: INTRAVENOUS (IV); REPORTING DATA: Count of CT and Cardiac NM exams in prior 12 months: This patient has received 0 known CTs and 0 known cardiac nuclear medicine studies in the 12 months prior to the current study. COMPARISON: CT cervical spin wo con* [id number] 12/14/2016 8:25 AM RADIATION DOSE METRICS: Total DLP (mGy-cm): 528.26 FINDINGS: Right common carotid artery: No stenosis. No dissection or occlusion. Right internal carotid artery: The origin of the right internal carotid artery is calcified with mild stenosis. Right external carotid artery: No occlusion or stenosis of the origin. Left common carotid artery: No stenosis. No dissection or occlusion. Left internal carotid artery: There is calcification of the origin of the left internal carotid artery with severe stenosis. Left external carotid artery: No occlusion or stenosis of the origin. Right vertebral artery: Right vertebral artery is occluded. Left vertebral artery: There is moderate stenosis at the origin of the left vertebral artery. Soft tissues: Normal. No significant soft tissue swelling. Bones/joints: No acute fracture. CT/CT angio headneck* [id number] IMPRESSION: 1. No intracranial large vessel occlusion or significant stenosis. 2. The distal portion of the right vertebral artery fills retrograde. IMPRESSION: 1. 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 2. Mild stenosis at the origin of the right internal carotid artery. 3. Right vertebral artery is occluded. REFERENCES: NASCET CRITERIA. The degree of stenosis in the cervical segment of the internal carotid artery is based on NASCET criteria. Normal is no stenosis. Mild is less than 50% stenosis. Moderate is 50-69% stenosis. Severe is 70% to 99% stenosis. Total occlusion is no detectable patent lumen.
--- NOTE | 2023-02-02 06:39 | ED_ITS ---
HPI - Altered Mental Status General: Chief Complaint: Altered Mental Status Stated Complaint: HIGH BLOOD PRESSURE Time Seen by Provider: 02/02/23 05:47 Source: patient, family and EMS Mode of arrival: EMS Limitations: altered mental status History of Present Illness: 87-year-old male does have a history of dementia her the went to bed last night at midnight when he woke up this morning he was confused from his baseline also complaining of blurry vision and headache patient here states he is got a headache a 5 out of 10 he is able answer some of my questions but he is quite confused he states that he has extremely blurry vision he was unable to really see my fingers at all in front of his eyes. No focal deficits no one-sided weakness no visual field deficits its more global. 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 GERD (gastroesophageal reflux disease) Gout HTN (hypertension) Hypercholesteremia PVD (peripheral vascular disease) Scalp mass TMJ (temporomandibular joint syndrome) Surgical History H/O: hemorrhoidectomy History of appendectomy S/P CABG x 4 Family History Father CAD (coronary artery disease) Mother Diabetes Stroke Denies family history of Anesthesia complication Bleeding disorder Social History Smoking and tobacco status: former smoker (30 pack year history) Alcohol intake: never Substance/Drug Use: never Household members: spouse Marital status: service: Yes branch: [employer] Current occupational status: retired Current gender identity: Male Amairani/Yarsanism: [employer] Physical Exam Const: COMMON NORMALS: negative for patient oriented x3 EXAM LIMITATIONS: altered mental status ORIENTATION/CONSCIOUSNESS: Yes oriented to person; not oriented to place and not oriented to time HENMT: COMMON NORMALS: normocephalic and atraumatic HEAD & SCALP: normocephalic and atraumatic Eye: OTHER: Pupils are pinpoint patient has extremely blurry vision he is able to see my fingers but not able to count them Neck/C-Spine: COMMON NORMALS: full ROM and no meningeal signs Chest: COMMONS NORMALS: normal inspection of the chest and normal palpation of entire chest wall Resp: COMMON NORMALS: normal respiratory effort and clear to auscultation bilaterally AUSCULTATION: clear to auscultation bilaterally Cardio: COMMON NORMALS: regular rate and regular rhythm RATE: regular rate RHYTHM: regular rhythm Extremity: COMMON NORMALS: normal to inspection Neuro: COMMON NORMALS: negative for patient oriented x3 SENSORIUM/ORIENTATION: Yes oriented to person, No oriented to place and No oriented to time MENINGEAL SIGNS: Yes no meningeal signs SPEECH: speech normal MOTOR EXAM: 5/5 motor strength present throughout OTHER: very ataxic gate difficult standing, global vision changes Psych: COMMON NORMALS: cooperative Skin: COMMON NORMALS: no rashes or lesions noted GENERAL SKIN EXAM: no rashes or lesions noted Course Vital Signs: Vital signs: Vital Signs Temperature 97.6 F 02/02/23 05:47 Pulse Rate 68 02/02/23 07:55 Respiratory Rate 17 02/02/23 07:55 Blood Pressure 168/79 02/02/23 07:55 Pulse Oximetry 95 02/02/23 07:55 Oxygen Delivery Me thod Room Air 02/02/23 06:28 MDM - Altered Mental Status Medical Decision Making Patient presents here with ataxia along with vision changes 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 He is not a tPA candidate his last known normal was noon spoke to neurologist at [facility] he recommended transfer there to the ER for perfusion studies will transfer at this time. Medical Records I reviewed the patient's medical records. Lab Data I reviewed the patient's lab results. 02/02/23 05:56 02/02/23 05:[address] 02/02/23 05:42 IMPRESSION: No acute intracranial abnormality. ASSESSMENT: ASPECTS ([place] Stroke Program Early CT Score) is 10. Chest X-Ray 02/02/23 06:19 IMPRESSION: No acute abnormality. Head/Neck CTA 02/02/23 06:39 IMPRESSION: 1. No intracranial large vessel occlusion or significant stenosis. 2. The distal portion of the right vertebral artery fills retrograde. IMPRESSION: 1. 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 2. Mild stenosis at the origin of the right internal carotid artery. 3. Right vertebral artery is occluded. REFERENCES: NASCET CRITERIA. The degree of stenosis in the cervical segment of the internal carotid artery is based on NASCET criteria. Normal is no stenosis. Mild is less than 50% stenosis. Moderate is 50-69% stenosis. Severe is 70% to 99% stenosis. Total occlusion is no detectable patent lumen. Laboratory Results WBC 7.3 10^3/uL (4.0-10.0) 02/02/23 05:56 RBC 4.12 10^6/uL (4.1-5.3) 02/02/23 05:56 Hgb 13.5 g/dL (11.7-16.6) 02/02/23 05:56 Hct 40.2 % (42.0-52.0) L 02/02/23 05:56 MCV 97.6 fl (80-94) H 02/02/23 05:56 MCH 32.8 pg (28.0-34.0) 02/02/23 05:56 MCHC 33.6 g/dL (30.0-36.0) 02/02/23 05:56 RDW 13.3 % (12.1-15.1) 02/02/23 05:56 Plt Count 216 10^3/cmm (130-400) 02/02/23 05:56 MPV 12.2 fL (7.4-10.4) H 02/02/23 05:56 Neut % (Auto) 45.8 % 02/02/23 05:56 Lymph % (Auto) 43.4 % 02/02/23 05:56 [place] % (Auto) 7.4 % 02/02/23 05:56 Eos % (Auto) 2.6 % 02/02/23 05:56 Baso % (Auto) 0.5 % 02/02/23 05:56 Neut # (Auto) 3.35 10^3/uL (1.8-7.7) 02/02/23 05:56 Lymph # (Auto) 3.2 10^3/uL (0.8-4.8) 02/02/23 05:56 [place] # (Auto) 0.5 10^3/uL (0.2-0.9) 02/02/23 05:56 Eos # (Auto) 0.2 10^3/uL (0.0-0.8) 02/02/23 05:56 Baso # (Auto) 0.0 10^3/uL (0.0-0.1) 02/02/23 05:56 Nucleated RBC % (auto) 0 % 02/02/23 05:56 Nucleated RBCs # 0.0 /100WBC 02/02/23 05:56 PT 13.70 SECONDS (12.1-14.9) 02/02/23 05:56 INR 1.02 (0.8-1.2) 02/02/23 05:56 Sodium 143 mmol/L (136-145) 02/02/23 05:56 Potassium 3.3 mmol/L (3.5-5.1) L 02/02/23 05:56 Chloride 107 mmol/L (98-107) 02/02/23 05:56 Carbon Dioxide 24 mmol/L (22-29) 02/02/23 05:56 Anion Gap 15.3 (5-19) 02/02/23 05:56 BUN 14 mg/dL (8-23) 02/02/23 05:56 Creatinine 0.9 mg/dL (0.7-1.2) 02/02/23 05:56 GFR Calculation Not Reportable 02/02/23 05:56 Glucose 108 mg/dL (65-115) 02/02/23 05:56 Calculated Osmolality 297 mOsm/kg (285-295) H 02/02/23 05:56 Calcium 8.8 mg/dL (8.5-10.5) 02/02/23 05:56 Total Bilirubin 0.4 mg/dL (0.15-1.2) 02/02/23 05:56 AST 18 U/L (0-40) 02/02/23 05:56 ALT 16 U/L (0-41) 02/02/23 05:56 Alkaline Phosphatase 42 U/L (40-130) 02/02/23 05:56 Ammonia 24 umol/L (16-60) 02/02/23 07:33 Total Protein 6.6 g/dL (6.6-8.7) 02/02/23 05:56 Albumin 4.2 g/dL (3.5-5.2) 02/02/23 05:56 Globulin 2.4 g/dL (1.3-4.6) 02/02/23 05:56 TSH 8.76 uIU/mL (0.27-4.20) H 02/02/23 05:56 Urine Color Colorless (Yellow) 02/02/23 06:15 Urine Appearance Clear (CLEAR) 02/02/23 06:15 Urine pH 8 (5-7) H 02/02/23 06:15 Ur Specific Welcome 1.010 (1.005-1.030) 02/02/23 06:15 Urine Protein Neg (Negative) 02/02/23 06:15 Urine Glucose (UA) Norm (Normal) 02/02/23 06:15 Urine Ketones Negative (Negative) 02/02/23 06:15 Urine Blood Neg (Negative) 02/02/23 06:15 Urine Nitrate Negative (Negative) 02/02/23 06:15 Urine Bilirubin Neg (Negative) 02/02/23 06:15 Prot Sulfosalicylic Acd Negative (Negative) 02/02/23 06:15 Urine Urobilinogen Norm mg/dL (Negative) 02/02/23 06:15 Ur Leukocyte Esterase Trace (Negative) H 02/02/23 06:15 Urine RBC None /hpf (0-2) 02/02/23 06:15 Urine WBC 0-4 /hpf (0-5) H 02/02/23 06:15 Ur Squamous Epith Cells None /hpf (0-5) 02/02/23 06:15 Amorphous Sediment Not Reportable 02/02/23 06:15 Urine Bacteria 2+ /hpf (NONE) H 02/02/23 06:15 EKG Data EKG 1: I personally reviewed and interpreted this EKG as follows: EKG interpretation date: 02/02/23 EKG interpretation time: 06:25 Interpretation: bradycardia hr [address] or t wave abnormalities qrs 110 qtc 497 Discharge Plan Discharge Patient Disposition: Xfer Short-Term Hosp Clinical Impression: CVA (cerebral vascular accident) Condition: Stable Referrals: Singh Roman MD [Primary Care Provider] - Patient Instructions: Hyponatremia (ED), Benzodiazepine Use Disorder (ED), Dementia (ED), Non-diabetic Hypoglycemia (ED), Hypoglycemia in a Person with Diabetes (ED), Concussion (ED), Alcohol Intoxication (ED), Subarachnoid Hemorr monisha (GEN), Altered Mental Status (ED) Coding Level of Care Code ED Oil Heat Technician for Stacia Watson
[2023-02-02 06:48] LABS: Add Urine Microscopic? YES; Bilirubin Urine Neg (Negative); Blood Urine Neg (Negative); Glucose Urine UA Norm (Normal); Ketones Urine Negative (Negative); Leukocyte Esterase Urine Trace (Negative); Nitrate Urine Negative (Negative); Protein Urine Neg (Negative); Sulfosalicylic Acid Urine Negative (Negative); Urine Appearance Clear (CLEAR); Urine Color Colorless (Yellow); Urobilinogen Urine Norm (Negative); pH Urine 8 (5-7)
[2023-02-02 06:49] LABS: Add Urine Culture? No; Bacteria Urine 2+ /hpf; WBC Urine 0-4 /hpf (0-5)
[2023-02-02 07:09] LABS: Alanine Aminotransferase 16 U/L (0-41); Albumin Level 4.2 g/dL (3.5-5.2); Alkaline Phosphatase 42 U/L (40-130); Anion Gap 15.3 (5-19); Aspartate Amino Transferase 18 U/L (0-40); Blood Urea Nitrogen 14 mg/dL (8-23); Calcium 8.8 mg/dL (8.5-10.5); Carbon Dioxide 24 mmol/L (22-29); Chloride 107 mmol/L (98-107); Globulin 2.4 g/dL (1.3-4.6); Glucose 108 mg/dL (65-115); Osmolality Calculated 297 mOsm/kg (285-295); Potassium 3.3 mmol/L (3.5-5.1); Sodium 143 mmol/L (136-145); Thyroid Stimulating Hormone 8.76 uIU/mL (0.27-4.20); Total Bilirubin 0.4 mg/dL (0.15-1.2); Total Protein 6.6 g/dL (6.6-8.7)
[2023-02-02 07:10] LABS: Basophils % 0.5 %; Eosinophils # 0.2 10^3/uL (0.0-0.8); Eosinophils % 2.6 %; Hematocrit 40.2 % (42.0-52.0); Hemoglobin 13.5 g/dL (11.7-16.6); Lymphocytes # 3.2 10^3/uL (0.8-4.8); Lymphocytes % 43.4 %; Mean Corpuscular HGB Conc 33.6 g/dL (30.0-36.0); Mean Corpuscular Hemoglobin 32.8 pg (28.0-34.0); Mean Corpuscular Volume 97.6 fl (80-94); Mean Platelet Volume 12.2 fL (7.4-10.4); Monocytes # 0.5 10^3/uL (0.2-0.9); Monocytes % 7.4 %; Neutrophils # 3.35 10^3/uL (1.8-7.7); Neutrophils % 45.8 %; Nucleated Red Blood Cells % 0 %; Platelet Count 216 10^3/cmm (130-400); Red Blood Count 4.12 10^6/uL (4.1-5.3); Red Cell Distribution Width 13.3 % (12.1-15.1); White Blood Count 7.3 10^3/uL (4.0-10.0)
[2023-02-02 07:39] LABS: INR 1.02 (0.8-1.2)
[2023-02-02 07:57] LABS: Ammonia 24 umol/L (16-60)
[2023-02-02] MEDS: aspirin 81 mg Chew Tablet 324 MG PO (08:16)
== END 2023-02-02 09:16 | disposition short-term general hospital (02) ==
PROVIDERS: Emergency Provider Emergency Medicine; PCP Family Medicine
DX: I63.9 Cerebral infarction, unspecified (principal); I12.9 Hypertensive chronic kidney disease with stage 1 through stage 4 chronic kidney disease, or unspecified chronic kidney disease; N18.9 Chronic kidney disease, unspecified; Z87.891 Personal history of nicotine dependence
CPT/HCPCS: 36415; 70450; 70496; 70498; 71045; 80053; 81001; 82140; 84443; 85025; 85610; 93005; 99285; Q9967

== ENCOUNTER 2023-03-04 18:45 | Observation (INO) | payer OTHER, MEDICARE, SELFPAY ==
[2023-03-04] VITALS (10 sets, daily range): BP systolic 152–193; BP diastolic 68–114; PULSE 63–75; RESP 15–26; TEMP 36.7; O2SAT 90–100
--- NOTE | 2023-03-04 18:49 | ECG_ITS ---
[facility] Test Date: 2023-03-04 Pat Name: Mahamed Mello Department: Room: 104 Gender: Male Patient Care Technician Instructor: : 1935 Requested By: Fe Thompson Order Number: [id number] Ion MD: Claribel Stokes M.D. Measurements Intervals [place] Rate: 73 P: 44 TN: 149 QRS: 14 QRSD: 101 T: 65 QT: 462 QTc: 512 Interpretive Statements SINUS RHYTHM PROLONGED QT INTERVAL Compared to ECG 02/02/2023 06:25:00 Prolonged QT interval now present Bradycardia, nonsinus no longer present Myocardial infarct finding no longer present Electronically Signed On 03-05-2023 16:27:51 CDT by Claribel Stokes M.D. [id number] f
--- NOTE | 2023-03-04 18:52 | XRR_ITS ---
PROCEDURE INFORMATION: Exam: XR Chest Exam date and time: 03/04/2023 7:01 PM Age: 87 years old Clinical indication: Pain; Chest pressure; Prior surgery; Surgery date: 1-6 months; Surgery type: Open heart; Additional info: Cp TECHNIQUE: Imaging protocol: Radiologic exam of the chest. Views: 1 view. COMPARISON: CR (CHEST, ) 02/02/2023 6:35 AM FINDINGS: Lungs: Unremarkable. No consolidation. Pleural spaces: Unremarkable. No pleural effusion. No pneumothorax. Heart/Mediastinum: Cardiomegaly. Bones/joints: Sternotomy wires. XR/XR chest 1V portable [id number] IMPRESSION: 1. Negative for infiltrate. 2. Cardiomegaly.
--- NOTE | 2023-03-04 18:56 | ED_ITS ---
HPI - Chest Pain General: Chief Complaint: Chest Pain Stated Complaint: chest pain Time Seen by Provider: 03/04/23 18:54 Source: EMS Mode of arrival: EMS Limitations: altered mental status History of Present Illness: 87-year-old male who had a history of a stroke he is altered at baseline got history from EMS he had complained of chest pain earlier grounded arrived patient was diaphoretic hypotensive heart rate was in the 40s had given him atropine the cold air air states when he arrived his heart rate was better his blood pressures been hypertensive within the states that he was very diaphoretic and complaining of chest pain his EKG showed no signs of ST elevation they started him on a nitro drip that is currently going home I speak to patient he is refuses any pain currently he denies any abdominal or chest pain he is confused which is his baseline. EMS states that his pain had resolved with nitro. 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 GERD (gastroesophageal reflux disease) Gout HTN (hypertension) Hypercholesteremia PVD (peripheral vascular disease) Scalp mass TMJ (temporomandibular joint syndrome) Surgical History H/O: hemorrhoidectomy History of appendectomy S/P CABG x 4 Family History Father CAD (coronary artery disease) Mother Diabetes Stroke Denies family history of Anesthesia complication Bleeding disorder Social History Smoking and tobacco status: former smoker (30 pack year history) Alcohol intake: never Substance/Drug Use: never Household members: spouse Marital status: service: Yes branch: [employer] Current occupational status: retired Current gender identity: Male Amairani/Cheondoism: [employer] Physical Exam Const: COMMON NORMALS: negative for patient oriented x3 HENMT: COMMON NORMALS: normocephalic and atraumatic HEAD & SCALP: normocephalic and atraumatic Eye: COMMON NORMALS: Equal, round and reactive pupils present and EOMs intact bilaterally PUPIL: Yes Equal, round and reactive pupils present Neck/C-Spine: COMMON NORMALS: full ROM and supple Chest: COMMONS NORMALS: normal inspection of the chest and normal palpation of entire chest wall Resp: COMMON NORMALS: normal respiratory effort, No retractions, No use of accessory muscles and clear to auscultation bilaterally AUSCULTATION: clear to auscultation bilaterally Cardio: COMMON NORMALS: regular rate, regular rhythm and No murmurs present (Cardio) RATE: regular rate RHYTHM: regular rhythm GI: COMMON NORMALS: Normal to inspection, nondistended, normoactive bowel sounds present, Soft to palpation, non-tender and no masses PALPATION: Yes Soft to palpation Extremity: COMMON NORMALS: normal to inspection and full ROM Neuro: COMMON NORMALS: moves all extremities; negative for patient oriented x3 Psych: COMMON NORMALS: cooperative; negative for mental status grossly normal Skin: COMMON NORMALS: no rashes or lesions noted and no wounds GENERAL SKIN EXAM: no rashes or lesions noted Course Vital Signs: Vital signs: Vital Signs Temperature 98.0 F 03/04/23 18:45 Pulse Rate 67 03/04/23 21:28 Respiratory Rate 16 03/04/23 21:28 Blood Pressure 180/69 03/04/23 21:28 Pulse Oximetry 92 03/04/23 21:28 Oxygen Delivery Me thod Room Air 03/04/23 18:45 MDM - Chest Pain Medical Decision Making Patient presents here with chest pain after talking to his he had had an episode of vomiting it sounds like it is more likely reflux type pain has been pain-free here I did stop his nitro drip he has been hypertensive given multiple doses of blood pressure medicines here. His troponins here are normal will admit for observation at this time. Medical Records I reviewed the patient's medical records. Lab Data I reviewed the patient's lab results. 03/04/23 19:14 03/04/23 19:14 Radiology Impressions Chest X-Ray 03/04/23 18:52 IMPRESSION: 1. Negative for infiltrate. 2. Cardiomegaly. Laboratory Results WBC 13.6 10^3/uL (4.0-10.0) H 03/04/23 19:14 RBC 4.36 10^6/uL (4.1-5.3) 03/04/23 19:14 Hgb 13.9 g/dL (11.7-16.6) 03/04/23 19:14 Hct 41.9 % (42.0-52.0) L 03/04/23 19:14 MCV 96.1 fl (80-94) H 03/04/23 19:14 MCH 31.9 pg (28.0-34.0) 03/04/23 19:14 MCHC 33.2 g/dL (30.0-36.0) 03/04/23 19:14 RDW 13.2 % (12.1-15.1) 03/04/23 19:14 Plt Count 196 10^3/cmm (130-400) 03/04/23 19:14 MPV 12.4 fL (7.4-10.4) H 03/04/23 19:14 Neut % (Auto) 76.8 % 03/04/23 19:14 Lymph % (Auto) 18.3 % 03/04/23 19:14 [place] % (Auto) 3.6 % 03/04/23 19:14 Eos % (Auto) 0.6 % 03/04/23 19:14 Baso % (Auto) 0.4 % 03/04/23 19:14 Neut # (Auto) 10.40 10^3/uL (1.8-7.7) H 03/04/23 19:14 Lymph # (Auto) 2.5 10^3/uL (0.8-4.8) 03/04/23 19:14 [place] # (Auto) 0.5 10^3/uL (0.2-0.9) 03/04/23 19:14 Eos # (Auto) 0.1 10^3/uL (0.0-0.8) 03/04/23 19:14 Baso # (Auto) 0.1 10^3/uL (0.0-0.1) 03/04/23 19:14 Nucleated RBC % (auto) 0 % 03/04/23 19:14 Nucleated RBCs # 0.0 /100WBC 03/04/23 19:14 PT 13.40 SECONDS (12.1-14.9) 03/04/23 19:14 INR 0.99 (0.8-1.2) 03/04/23 19:14 Sodium 140 mmol/L (136-145) 03/04/23 19:14 Potassium 4.4 mmol/L (3.5-5.1) 03/04/23 19:14 Chloride 104 mmol/L (98-107) 03/04/23 19:14 Carbon Dioxide 18 mmol/L (22-29) L 03/04/23 19:14 Anion Gap 22.4 (5-19) H 03/04/23 19:14 BUN 20 mg/dL (8-23) 03/04/23 19:14 Creatinine 1.2 mg/dL (0.7-1.2) 03/04/23 19:14 GFR Calculation Not Reportable 03/04/23 19:14 Glucose 130 mg/dL (65-115) H 03/04/23 19:14 Calculated Osmolality 294 mOsm/kg (285-295) 03/04/23 19:14 Calcium 9.3 mg/dL (8.5-10.5) 03/04/23 19:14 Magnesium 2.0 mg/dL (1.7-2.3) 03/04/23 19:14 Total Bilirubin 0.5 mg/dL (0.15-1.2) 03/04/23 19:14 AST 23 U/L (0-40) 03/04/23 19:14 ALT 16 U/L (0-41) 03/04/23 19:14 Alkaline Phosphatase 47 U/L (40-130) 03/04/23 19:14 Troponin T Baseline 15 ng/L (0-15) 03/04/23 19:14 Troponin T 120 Minute 14.67 ng/L (0-15) 03/04/23 21:03 Delta Troponin T -0.33 ABS# (0-10) L 03/04/23 21:03 NT-Pro-B Natriuret Pep 604 pg/mL (0-450) H 03/04/23 19:14 Total Protein 7.0 g/dL (6.6-8.7) 03/04/23 19:14 Albumin 4.3 g/dL (3.5-5.2) 03/04/23 19:14 Globulin 2.7 g/dL (1.3-4.6) 03/04/23 19:14 Lipase 20 U/L (13-60) 03/04/23 19:14 EKG Data EKG 1: I personally reviewed and interpreted this EKG as follows: EKG interpretation date: 03/04/23 EKG interpretation time: 18:49 Interpretation: nsr hr [address] or t wave abnormalities qrs 101 qtc 488 Discharge Plan Discharge Patient Disposition: Placed in Observation Admit Provider: Allyn Hwang Clinical Impression: Chest pain, HTN (hypertension) Condition: Stable Coding Level of Care Code ED Thread Milling Machine Set Up Operator for Chg Walter
[2023-03-04] MEDS: hyDRALAzine 20 mg/mL INJ 1 mL 10 MG IVP ×2 (19:34→19:51)
[2023-03-04 19:44] LABS: INR 0.99 (0.8-1.2)
[2023-03-04] MEDS: lidocaine 2% viscous 15 ML, aluminum-mag hydrox-simethicon 30 ML, sucralfate oral liq 1 GM PO (19:45)
[2023-03-04] MEDS: nitroglycerin drip 50 MG/250 ML PREMIX IV (19:46)
[2023-03-04 19:54] LABS: Basophils # 0.1 10^3/uL (0.0-0.1); Basophils % 0.4 %; Eosinophils # 0.1 10^3/uL (0.0-0.8); Eosinophils % 0.6 %; Hematocrit 41.9 % (42.0-52.0); Hemoglobin 13.9 g/dL (11.7-16.6); Lymphocytes # 2.5 10^3/uL (0.8-4.8); Lymphocytes % 18.3 %; Mean Corpuscular HGB Conc 33.2 g/dL (30.0-36.0); Mean Corpuscular Hemoglobin 31.9 pg (28.0-34.0); Mean Corpuscular Volume 96.1 fl (80-94); Mean Platelet Volume 12.4 fL (7.4-10.4); Monocytes # 0.5 10^3/uL (0.2-0.9); Monocytes % 3.6 %; Neutrophils % 76.8 %; Nucleated Red Blood Cells % 0 %; Platelet Count 196 10^3/cmm (130-400); Red Blood Count 4.36 10^6/uL (4.1-5.3); Red Cell Distribution Width 13.2 % (12.1-15.1); White Blood Count 13.6 10^3/uL (4.0-10.0)
[2023-03-04 19:55] LABS: Troponin(5th) Baseline 15 ng/L (0-15)
[2023-03-04 20:00] LABS: NT Pro B Type Natriuretic Pept 604 pg/mL (0-450)
[2023-03-04 20:14] LABS: Alanine Aminotransferase 16 U/L (0-41); Albumin Level 4.3 g/dL (3.5-5.2); Alkaline Phosphatase 47 U/L (40-130); Aspartate Amino Transferase 23 U/L (0-40); Blood Urea Nitrogen 20 mg/dL (8-23); Calcium 9.3 mg/dL (8.5-10.5); Chloride 104 mmol/L (98-107); Globulin 2.7 g/dL (1.3-4.6); Lipase 20 U/L (13-60); Osmolality Calculated 294 mOsm/kg (285-295); Sodium 140 mmol/L (136-145); Total Bilirubin 0.5 mg/dL (0.15-1.2)
[2023-03-04 20:19] LABS: Potassium 4.4 mmol/L (3.5-5.1)
[2023-03-04 20:20] LABS: Anion Gap 22.4 (5-19); Carbon Dioxide 18 mmol/L (22-29); Glucose 130 mg/dL (65-115)
[2023-03-04 21:30] LABS: Troponin 5 2HR 14.67 ng/L (0-15)
--- NOTE | 2023-03-04 21:43 | ECG_ITS ---
[facility] Test Date: 2023-03-04 Pat Name: Mahamed Mello Department: Room: Gender: Male Clam Dredger: : 1935 Requested By: Fe Thompson Order Number: [id number] Ion MD: Claribel Stokes M.D. Measurements Intervals [place] Rate: 63 P: 62 [place]: 145 QRS: -1 QRSD: 109 T: 77 QT: 400 QTc: 411 Interpretive Statements SINUS RHYTHM POSSIBLE LEFT ATRIAL ENLARGEMENT [-0.1mV P-WAVE IN V1/V2] Compared to ECG 02/02/2023 06:25:00 Bradycardia, nonsinus no longer present Myocardial infarct finding no longer present Electronically Signed On 03-05-2023 16:30:23 CDT by Claribel Stokes M.D. [id number]
[2023-03-04 21:59] LABS: Troponin 5 2HR Delta -0.33 ABS# (0-10)
--- NOTE | 2023-03-04 23:02 | P.HP_ITS ---
Providers/Chief Complaint Admitting Physician: Severo Cantu MD Primary Care Provider: Singh Roman MD Chief Complaint: chest pain History of Present Illness Mahamed Mello is a 87 year old male who presented to the emergency department with complaints of chest pain. Apparently EMS gave him atropine and he was diaphoretic with heart rate in the 40s. Nitroglycerin drip was also initiated. When he was seen in the emergency department he was denying any chest discomf ort. He was apparently confused, which is baseline. He had recently been admitted to [facility] for a stroke on February 02, and was found to have significant carotid disease at that time. His gives most of the history. She reports since his episode of stroke he has been confused. She states he did not have any sweating at home she noticed. This all started with vomiting several times around 3 PM. He started having chest discomfort described as burning after that. She thought about Tums, but i t was so severe she called the ambulance. She reports he does not usually have chest discomfort, but frequently hiccups and has upper gastrointestinal symptoms. She denies any blood in the stool, blood in his emesis. Patient himself and reiterate he is not having any symptoms now. They do relate that at his last hospital stay his metoprolol was increased to 50 mg twice daily. They also had significant trouble controlling his blood pressure and hydralazine was frequently needed. This was started on a as needed basis at the rehab facility he was out after CVA. She reports his deficit after CVA was difficulty with vision in his left eye, and increased confusion. She reports no severe carotid disease he was diagnosed with was planned to be treated medically. They did not think he was a surgical candidate. She reports they did do an echocardiogram. Review of Systems General: Reports: 10 or more systems reviewed and unremarkable except in HPI and below Card: Reports: chest pain; Denies: swelling of feet/ankles or dyspnea on exertion Resp: Denies: dyspnea or hemoptysis GI: Reports: nausea and vomiting; Denies: abdominal pain, hematemesis, hematochezia or melena Medications/Allergies Home Medications Medication Instructions Recorded Confirmed Last Taken Type amlodipine 10 mg tablet 10 mg PO QAM 09/17/19 02/28/23 07/13/20 06:45 History donepezil 10 mg tablet 10 mg PO BEDTIME 09/17/19 02/28/23 07/12/20 21:00 History omeprazole 20 mg tablet,delayed 20 mg PO QAM 09/17/19 02/28/23 07/13/20 06:45 History release tamsulosin 0.4 mg capsule 0.8 mg PO BEDTIME 09/17/19 02/28/23 07/12/20 21:00 History cholecalciferol (vitamin D3) 125 125 mcg PO DAILY 03/29/20 02/28/23 07/12/20 07:00 History mcg (5,000 unit) tablet (Vitamin D3) cyanocobalamin (vitamin B-12) 1,000 mcg PO DAILY 03/29/20 02/28/23 07/12/20 07:0 0 History 1,000 mcg tablet (Vitamin B-12) flaxseed oil 1,000 mg capsule 1,000 mg PO BID 03/29/20 02/28/23 07/12/20 History omega-3 acid ethyl esters 1 gram 1 cap PO BID 03/29/20 02/28/23 07/12/20 21:00 History capsule (Lovaza) finasteride 5 mg tablet ea PO 07/25/22 02/28/23 Unknown History allopurinol 300 mg tablet See Rx Instructions .Route 01/14/23 Unknown Rx .COMPLEX #45 tabs citalopram 10 mg tablet See Rx Instructions .Route 01/14/23 02/28/23 Unknown Rx .COMPLEX #30 tabs lisinopril 20 mg tablet 20 mg PO BEDTIME #90 tabs 02/05/23 02/28/23 Unknown Rx aspirin 81 mg tablet,delayed 81 mg PO DAILY 02/28/23 02/28/23 Unknown History release atorvastatin 80 mg tablet 80 mg PO DAILY 02/28/23 02/28/23 Unknown History clopidogrel 75 mg tablet 75 mg PO DAILY 02/28/23 02/28/23 Unknown History hydralazine 50 mg tablet 50 mg PO QID PRN SBP>165 or DBP>85 02/28/23 02/28/23 Unknown Rx #30 tabs levothyroxine 75 mcg tablet 75 mcg PO DAILY 02/28/23 02/28/23 Unknown History metoprolol tartrate 50 mg tablet 50 mg PO BID 02/28/23 02/28/23 Unknown History nitroglycerin 0.4 mg sublingual 0.4 mg sublingual Q5M PRN chest 02/28/23 02/28/23 Unknown Rx tablet pain #14 tabs Allergies Allergy/AdvReac Type Severity Reaction Status Date / Time [id number] Reductase Allergy Intermediate muscle Verified 03/04/23 18:52 Inhibitor weakness PFSH Acute PFSH: Medical History (Updated 03/04/23 @ 23:53 by Severo Cantu MD) Anemia Aortic valve insufficiency Aortic valve sclerosis BPH (benign prostatic hyperplasia) Carotid stenosis, asymptomatic Chronic kidney disease (CKD) Claudication of both lower extremities COPD (chronic obstructive pulmonary disease) CVA (cerebral vascular accident) Dementia Erectile disorder 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 GERD (gastroesophageal reflux disease) Gout HTN (hypertension) Hypercholesteremia PVD (peripheral vascular disease) Scalp mass TMJ (temporomandibular joint syndrome) Surgical History H/O: hemorrhoidectomy History of appendectomy S/P CABG x 4 Family History Father CAD (coronary artery disease) Mother Diabetes Stroke Denies family history of Anesthesia complication Bleeding disorder Social History Smoking and tobacco status: former smoker (30 pack year history) Alcohol intake: never Substance/Drug Use: never Household members: spouse Marital status: service: Yes branch: [employer] Current occupational status: retired Current gender identity: Male Amairani/Mandaeism: [employer] of [facility] Vitals/I&O/Wt Last Vital Signs Temp 98.0 F 03/04/23 22:40 Pulse 72 03/04/23 22:40 Resp 16 03/04/23 22:40 BP 178/70 03/04/23 22:40 Pulse Ox 92 03/04/23 22:40 O2 Del Method Room Air 03/04/23 18:45 03/04/23 03/04/23 03/05/23 14:59 22:59 06:59 Intake Total 11.475 / 11.475 Balance 11.475 / 11.475 Weight last 48 hrs Weight 80.286 kg Physical Exam Narrative: General exam is no distress HEENT: Atraumatic and normocephalic. Oropharynx clear. Neck is supple no lymphadenopathy or thyromegaly Cardiovascular regular rate and rhythm, no murmur Lungs clear no wheezing or crackles Abdomen is soft with positive bowel sounds. No obvious organomegaly exams deferred Extremities no cyanosis clubbing. Trace edema. Skin no rash Neuro difficult to elicit any deficit, although I did not particularly check visual luke. He does have some confusion. He does recognize his . Data 03/04/23 19:14 03/04/23 19:14 Other Labs: Chest x-ray reviewed by me demonstrates cardiomegaly, postoperative heart, no infiltrate Urinalysis is not present for review INR is normal BNP 604 Troponin 15 with repeat 14.6 Lipase normal Albumin 4.3 EKG reviewed by me demonstrates normal sinus rhythm, normal axis, nonspecific ST -T wave changes, likely left atrial enlargement A&P Assessment and plan (1) Chest pain: There was concern patient had significant chest discomfort, following vomiting. There is no evidence of myocardial infarction currently, and troponin trend is not concerning. Initial EKG reviewed, no evidence of ST elevation Patient is chest discomfort free currently Continue to manage medically his past history of coronary disease. Continue Plavix, aspirin, statin. Lower dose of beta-alison secondary to concern of bradycardia in the field and recent increase in beta-alison. Request records from [facility] regarding echocardiogram Add long-acting nitrate, Imdur 30 mg daily. This would also help with blood pressure control which has been an issue currently. Observation currently CBC, CMP in the morning (2) Bradycardia: See above Continue telemetry (3) Vomiting: Patient has a long history of upper GI symptomatology. This may be the etiology of his chest discomfort. Initiate Protonix 40 mg twice daily. Monitor for any Recurrence of reflux symptoms. Check urinalysis to make sure UTI is not present. (4) CVA (cerebral vascular accident): Patient had a recent CVA, and was determined to have significant carotid disease which was being treated medically. Continue Plavix, aspirin, statin Keep neurology appointment already arranged in [place] He is currently getting home physical therapy which should continue (5) HTN (hypertension): Patient with significant elevation of blood pressure on arrival. Continue amlodipine, metoprolol but at lower dose. Continue lisinopril 20 mg daily. Add Imdur 30 mg daily Adjust medication further as needed. Certainly dose of lisinopril could be increased. Plan Multiple other medical problems as outlined in past medical history Allow natural . Discussed in detail with patient and . They would still want medical management, but no CPR or intubation Attestations Medical Necessity Statement*: Will need less than 2 midnight stay for evaluation and treatment of chest discomfort, bradycardia, hypertension. Diagnoses Chest pain R07.9 Bradycardia R00.1 Vomiting R11.10 CVA (cerebral vascular accident) I63.9 HTN (hypertension) I10 Time Spent (min) 51
[2023-03-05] MEDS: enoxaparin 40 mg/0.4 mL Syringe SUBCUT (00:09)
[2023-03-05 00:41] LABS: Basophils % 0.2 %; Hematocrit 41.3 % (42.0-52.0); Hemoglobin 13.8 g/dL (11.7-16.6); Lymphocytes # 1.4 10^3/uL (0.8-4.8); Lymphocytes % 10.4 %; Mean Corpuscular HGB Conc 33.4 g/dL (30.0-36.0); Mean Corpuscular Hemoglobin 32.4 pg (28.0-34.0); Mean Corpuscular Volume 96.9 fl (80-94); Mean Platelet Volume 11.8 fL (7.4-10.4); Monocytes # 0.2 10^3/uL (0.2-0.9); Monocytes % 1.4 %; Neutrophils # 11.56 10^3/uL (1.8-7.7); Neutrophils % 87.8 %; Nucleated Red Blood Cells % 0 %; Platelet Count 220 10^3/cmm (130-400); Red Blood Count 4.26 10^6/uL (4.1-5.3); Red Cell Distribution Width 13.3 % (12.1-15.1); White Blood Count 13.2 10^3/uL (4.0-10.0)
[2023-03-05 01:15] LABS: Troponin 5 6HR 15.77 ng/L (0-15)
[2023-03-05 01:18] LABS: Alanine Aminotransferase 17 U/L (0-41); Albumin Level 4.3 g/dL (3.5-5.2); Alkaline Phosphatase 52 U/L (40-130); Anion Gap 19.9 (5-19); Aspartate Amino Transferase 21 U/L (0-40); Blood Urea Nitrogen 22 mg/dL (8-23); Calcium 9.7 mg/dL (8.5-10.5); Carbon Dioxide 21 mmol/L (22-29); Chloride 105 mmol/L (98-107); Globulin 2.9 g/dL (1.3-4.6); Glucose 140 mg/dL (65-115); Osmolality Calculated 300 mOsm/kg (285-295); Potassium 3.9 mmol/L (3.5-5.1); Sodium 142 mmol/L (136-145); Total Bilirubin 0.4 mg/dL (0.15-1.2); Total Protein 7.2 g/dL (6.6-8.7)
--- NOTE | 2023-03-05 01:19 | ECG_ITS ---
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 Measurements Intervals [place] Rate: 75 P: 39 NC: 161 QRS: 32 QRSD: 106 T: 41 QT: 423 QTc: 473 Interpretive Statements SINUS RHYTHM POSSIBLE LEFT ATRIAL ENLARGEMENT [-0.1mV P-WAVE IN V1/V2] NONSPECIFIC ST & T-WAVE ABNORMALITY Compared to ECG 03/04/2023 21:43:15 T-wave abnormality now present Electronically Signed On 03-05-2023 16:30:08 CDT by Claribel Stokes M.D. [id number]
[2023-03-05 01:23] LABS: Troponin 5 6HR Delta 0.77 ng/L (0-12)
[2023-03-05] MEDS: ondansetron 2 mg/ML SDV 2 mL 4 MG IVP (03:52)
[2023-03-05 04:16] LABS: Bilirubin Urine Neg (Negative); Blood Urine Neg (Negative); Glucose Urine UA Norm (Normal); Ketones Urine 1+ (Negative); Leukocyte Esterase Urine 1+ (Negative); Nitrate Urine Negative (Negative); Protein Urine Trace (Negative); Urine Appearance SL Hazy (CLEAR); Urine Color Yellow (Yellow); Urobilinogen Urine Norm (Negative); pH Urine 6 (5-7)
[2023-03-05 04:17] LABS: Add Urine Culture? Yes; Bacteria Urine 3+ /hpf; RBC Urine 0-4 /hpf (0-2); Squamous Epithelial Cell Urine 0-4 /hpf (0-5); WBC Urine 25-40 /hpf (0-5)
[2023-03-05 04:56] VITALS: BP 168/76; PULSE 74; RESP 18; O2SAT 95
[2023-03-05 04:59] VITALS: PULSE 76
[2023-03-05] MEDS: amlodipine 10 mg Tablet PO (05:16)
[2023-03-05 07:31] VITALS: BP 181/76; PULSE 70; RESP 14; TEMP 36.9; O2SAT 90
--- NOTE | 2023-03-05 08:11 | PC.NURSE ---
Verified with pharmacy that we are giving the Lipitor. He has statins listed as an allergy but it gives him muscle weakness. Doctors are aware and we are going to give and monitor his symptoms.
[2023-03-05] MEDS: pantoprazole DR 40 mg Tablet PO (08:26)
[2023-03-05] MEDS: metoprolol tartrate 25 mg Tablet PO (08:26)
[2023-03-05] MEDS: isosorbide mononitrate ER 30 mg Tablet PO (08:26)
[2023-03-05] MEDS: levothyroxine 75 mcg Tablet PO (08:27)
[2023-03-05] MEDS: clopidogrel 75 mg Tablet PO (08:27)
[2023-03-05] MEDS: atorvastatin 40 mg Tablet 80 MG PO (08:27)
[2023-03-05] MEDS: aspirin 81 mg EC Tablet PO (08:27)
[2023-03-05] MEDS: lisinopril 20 mg Tablet PO (09:01)
[2023-03-05] MEDS: cefTRIAXone 1,000 MG in sodium chloride 0.9% (plus) 50 ML 100 MG IV (09:01)
--- NOTE | 2023-03-05 09:27 | PC.CHAP ---
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 [] Patient/Family/Request visit [] Outpatient visit [] Follow-up visit [] Physician referral [] Code/Alert [x] Routine visit [] Staff referral [] Actively dying [] Patient sleeping [x] Family support [] [] Out of room [] Palliative care [] [] Receiving care in room [] Pre-surgical visit [] Trauma [] Long length of stay [] ICU visit [] Other: Relational/Emotional Strength [x] Patient feels connected with others/family/visitors/staff [] Distress [] Loneliness/isolation [] Abandonment Spirituality of Patient [x] Person of Amairani [] Attends Latter-Day of their Amairani [x] Believes in Prayer [] Reads Bible or Yazdanism materials [] There are Spiritual issues to be addressed Laboratory Manager Interventions [x] Prayer [x] Active listening [] Non-anxious presence [x] Spiritual/emotional support [] Crisis/trauma care [] Spiritual counseling [] Bereavement support [] Provided bereavement packet [] Provided Bible/devotional materials [] Provided toy/stuffed animal, coloring book to patient or family member [] Provided Communion [] Anointing/[place] [] Salvation [x] Completed spiritual assessment [] Other: Impact on Illness or Injury [] Angry [] Fearful [] Anxious [] Often cries [] Exhaustion [] Unable to work [] Unable to attend gnosticist [] Unable to walk/stand [] Unable to read [] Unable to drive [] Unable to eat/drink [] Unable to sleep [] Unable to be with family [] Patient intubated [] Other: Summary Time spent with patient 5 min
--- NOTE | 2023-03-05 09:29 | P.DS_ITS ---
Discharge Providers Date of Admission: 03/04/23 22:20 Date of Discharge: March 05, 2023 Attending Provider at Admission: Allyn Hwang MD Attending Provider at Discharge: Severo Cantu MD Primary Care Provider: Singh Roman MD Diagnoses at Discharge Discharge Diagnosis (1) Chest pain: Status: Acute (2) Bradycardia: Status: Acute (3) Vomiting: Status: Acute (4) CVA (cerebral vascular accident): Status: Acute (5) HTN (hypertension): Status: Acute Reason for Visit Reason for Visit: chest pain Hospital Course Hospital Course Patient presented to the hospital after several episodes of vomiting, and then having some burning chest discomfort. EMS when they arrived noticed his heart rate was in the 40s after vomiting. They initially gave him some atropine, and then put him on a nitroglycerin drip secondary to concern of chest discomfort as well as elevated blood pressure. On arrival to the emergency department he denied any discomfort. EKG did not demonstrate acute changes. Troponin trend was not concerning, however secondary to the reported bradycardia, history of coronary disease, he was monitored overnight. He had no recurrence of discomfort overnight. He had no evidence of further bradycardia. Troponin trend was negative. He was placed on Imdur. His metoprolol dose was decreased. His lisinopril dose was increased. He was monitored closely, and without symptoms and no evidence of recurrent bradycardia it was thought his diagnosis was bradycardia secondary to his GI symptomatology. I discussed in depth with his , who is in agreement with his discharge home and close follow-up with his primary care provider. They will monitor for any returning symptoms, and return if these occur. She was given an opportunity to ask questions, and agreed with the plan. The patient has underlying dementia since a recent CVA, and has overall limited understanding of his medical condition. Physical Exam Narrative: General exam no distress Neck is supple Cardiovascular regular rate and rhythm Lungs clear Abdomen is soft with positive bowel sounds Extremities no sinus clubbing or edema Discharge Data Studies Completed and Pending Completed Studies During Hospitalization Category Date Time Status XR chest 1V portable [id number] Stat Exams 03/04/23 18:52 Completed Pending at discharge Category Date Time Status Urine Culture Routine Lab 03/05/23 04:00 Received Radiology Impressions Chest X-Ray 03/04/23 18:52 IMPRESSION: 1. Negative for infiltrate. 2. Cardiomegaly. Laboratory Results WBC 13.2 10^3/uL (4.0-10.0) H 03/05/23 00:36 RBC 4.26 10^6/uL (4.1-5.3) 03/05/23 00:36 Hgb 13.8 g/dL (11.7-16.6) 03/05/23 00:36 Hct 41.3 % (42.0-52.0) L 03/05/23 00:36 MCV 96.9 fl (80-94) H 03/05/23 00:36 MCH 32.4 pg (28.0-34.0) 03/05/23 00:36 MCHC 33.4 g/dL (30.0-36.0) 03/05/23 00:36 RDW 13.3 % (12.1-15.1) 03/05/23 00:36 Plt Count 220 10^3/cmm (130-400) 03/05/23 00:36 MPV 11.8 fL (7.4-10.4) H 03/05/23 00:36 Neut % (Auto) 87.8 % 03/05/23 00:36 Lymph % (Auto) 10.4 % 03/05/23 00:36 Humphreys % (Auto) 1.4 % 03/05/23 00:36 Eos % (Auto) 0.0 % 03/05/23 00:36 Baso % (Auto) 0.2 % 03/05/23 00:36 Neut # (Auto) 11.56 10^3/uL (1.8-7.7) H 03/05/23 00:36 Lymph # (Auto) 1.4 10^3/uL (0.8-4.8) 03/05/23 00:36 Humphreys # (Auto) 0.2 10^3/uL (0.2-0.9) 03/05/23 00:36 Eos # (Auto) 0.0 10^3/uL (0.0-0.8) 03/05/23 00:36 Baso # (Auto) 0.0 10^3/uL (0.0-0.1) 03/05/23 00:36 Nucleated RBC % (auto) 0 % 03/05/23 00:36 Nucleated RBCs # 0.0 /100WBC 03/05/23 00:36 PT 13.40 SECONDS (12.1-14.9) 03/04/23 19:14 INR 0.99 (0.8-1.2) 03/04/23 19:14 Sodium 142 mmol/L (136-145) 03/05/23 00:36 Potassium 3.9 mmol/L (3.5-5.1) 03/05/23 00:36 Chloride 105 mmol/L (98-107) 03/05/23 00:36 Carbon Dioxide 21 mmol/L (22-29) L 03/05/23 00:36 Anion Gap 19.9 (5-19) H 03/05/23 00:36 BUN 22 mg/dL (8-23) 03/05/23 00:36 Creatinine 1.2 mg/dL (0.7-1.2) 03/05/23 00:36 GFR Calculation Not Reportable 03/05/23 00:36 Glucose 140 mg/dL (65-115) H 03/05/23 00:36 Calculated Osmolality 300 mOsm/kg (285-295) H 03/05/23 00:36 Calcium 9.7 mg/dL (8.5-10.5) 03/05/23 00:36 Magnesium 2.0 mg/dL (1.7-2.3) 03/05/23 00:36 Total Bilirubin 0.4 mg/dL (0.15-1.2) 03/05/23 00:36 AST 21 U/L (0-40) 03/05/23 00:36 ALT 17 U/L (0-41) 03/05/23 00:36 Alkaline Phosphatase 52 U/L (40-130) 03/05/23 00:36 Troponin T Baseline 15 ng/L (0-15) 03/04/23 19:14 Troponin T 120 Minute 14.67 ng/L (0-15) 03/04/23 21:03 Delta Troponin T -0.33 ABS# (0-10) L 03/04/23 21:03 Troponin T Hi Sens 6Hr 15.77 ng/L (0-15) H 03/05/23 00:36 Troponin T Hi Sens 6Hr Delta 0.77 ng/L (0-12) 03/05/23 00:36 NT-Pro-B Natriuret Pep 604 pg/mL (0-450) H 03/04/23 19:14 Total Protein 7.2 g/dL (6.6-8.7) 03/05/23 00:36 Albumin 4.3 g/dL (3.5-5.2) 03/05/23 00:36 Globulin 2.9 g/dL (1.3-4.6) 03/05/23 00:36 Lipase 20 U/L (13-60) 03/04/23 19:14 Urine Color Yellow (Yellow) 03/05/23 04:00 Urine Appearance Sl hazy (CLEAR) A 03/05/23 04:00 Urine pH 6 (5-7) 03/05/23 04:00 Ur Specific Alkol 1.020 (1.005-1.030) 03/05/23 04:00 Urine Protein Trace (Negative) 03/05/23 04:00 Urine Glucose (UA) Norm (Normal) 03/05/23 04:00 Urine Ketones 1+ (Negative) H 03/05/23 04:00 Urine Blood Neg (Negative) 03/05/23 04:00 Urine Nitrate Negative (Negative) 03/05/23 04:00 Urine Bilirubin Neg (Negative) 03/05/23 04:00 Urine Urobilinogen Norm mg/dL (Negative) 03/05/23 04:00 Ur Leukocyte Esterase 1+ (Negative) H 03/05/23 04:00 Urine RBC 0-4 /hpf (0-2) H 03/05/23 04:00 Urine WBC 25-40 /hpf (0-5) H 03/05/23 04:00 Ur Squamous Epith Cells 0-4 /hpf (0-5) H 03/05/23 04:00 Amorphous Sediment Not Reportable 03/05/23 04:00 Urine Bacteria 3+ /hpf (NONE) H 03/05/23 04:00 Vitals Last Vital Signs Temp 98.4 F 03/05/23 07:31 Pulse 70 03/05/23 07:31 Resp 14 03/05/23 07:31 BP 181/76 03/05/23 07:31 Pulse Ox 90 03/05/23 07:31 O2 Del Method Room Air 03/05/23 07:31 O2 Flow Rate 2 03/05/23 04:56 Discharge Plan Discharge Patient Disposition: Home Health Service Condition: Stable Prescriptions: New lisinopril 20 mg Tablet 20 mg PO BID Qty: 60 0RF isosorbide mononitrate 30 mg Tablet Extended Release 24 Hr 30 mg PO DAILY Qty: 30 0RF pantoprazole 40 mg Tablet,Delayed Release (Dr/Ec) 40 mg PO BID Qty: 60 0RF metoprolol tartrate 25 mg Tablet 25 mg PO BID@0900,2100 Qty: 60 0RF cefdinir 300 mg capsule 300 mg PO BID 7 Days Qty: 14 0RF Continued tamsulosin 0.4 mg capsule 0.4 mg PO BEDTIME donepezil 10 mg tablet 10 mg PO BEDTIME amlodipine 10 mg tablet 10 mg PO QAM finasteride 5 mg tablet 5 mg PO QAM clopidogrel 75 mg tablet 75 mg PO QAM Rx Instructions: Take for 3 months and then go back to Aspirin 325mg daily aspirin 81 mg tablet,delayed release (DR/EC) 81 mg PO QAM atorvastatin 80 mg tablet 80 mg PO BEDTIME levothyroxine 75 mcg tablet 75 mcg PO QAM hydralazine 50 mg tablet 50 mg PO QID PRN (Reason: SBP>165 or DBP>85) Qty: 30 3RF nitroglycerin 0.4 mg tablet, sublingual 0.4 mg sublingual Q5M PRN (Reason: chest pain) Qty: 14 1RF Rx Instructions: do not exceed 3 doses per episode cyanocobalamin (vitamin B-12) [Vitamin B-12] 1,000 mcg Tablet 1,000 mcg PO QAM omega-3 acid ethyl esters [Lovaza] 1 gram Capsule 1 cap PO BID nicotine 21 mg/24 hr Patch 24 Hour 1 patch TRANSDERMAL DAILY Stool Softener 100 mg Capsule 100 mg PO BEDTIME Vitamin D3 25 mcg (1,000 unit) Tablet 25 mcg PO BEDTIME citalopram 10 mg tablet 10 mg PO BEDTIME allopurinol 300 mg tablet 150 mg PO QAM Discontinued omeprazole 20 mg tablet,delayed release (DR/EC) 20 mg PO QAM metoprolol tartrate 50 mg tablet 50 mg PO BID lisinopril 20 mg tablet 20 mg PO QAM Discharge Orders: Discharge Order (Routine); Ordered 03/05/23 Ordered By: Severo Cantu Referrals: [facility] [Other] [facility] [Other] Singh Roman MD [Primary Care Provider] - 03/12/23 4:30 pm (Please follow-up with Dr. Roman on March 12 at 16;30p.m. If yo have any questions or need to rechedule. Please call ) Discharge Diet: Cardiac Discharge Activity: Increase activity as tolerated Patient Instructions: Metoprolol (By mouth), Lisinopril (By mouth) (Prinivil, Zestril), Isosorbide Mononitrate (By mouth) (Imdur, Imdur ER, Ismo), Cefdinir (By mouth) (Omnicef), Pantoprazole (By mouth) (Protonix), Bradycardia (DC), Hypertension (DC), COPD Stoplight, Chest Pain Stoplight, Opioid Safety, Stroke Stoplight Activity Restrictions/Additional Instructions: Take all medicine as prescribed Follow-up with your primary care provider 3 to 5 days BMP on follow-up Return for any concerns Patient's Health Concerns: Vomiting, followed by chest pain. Assessment: Resolved Plan of Treatment: Increase Protonix Increase lisinopril, reduce metoprolol, add Imdur secondary to hypertension and past history of heart disease Goals: No recurrent pain Discharge Attestations Time Spent in Discharge Care*: greater than 30 min Quality Metrics Clinical Quality Measures [ No reported AMI, CVA or VTE this stay] Coding Level of Care Code 21389 Total time (in minutes) for Discharge: 40 Diagnoses Chest pain R07.9 Bradycardia R00.1 Vomiting R11.10 CVA (cerebral vascular accident) I63.9 HTN (hypertension) I10
[2023-03-05 10:51] VITALS: BP 157/64; PULSE 65; RESP 22; O2SAT 90
[2023-03-05 11:40] VITALS: BP 153/73; PULSE 71; RESP 18; TEMP 36.9; O2SAT 90
[2023-03-05 12:52] VITALS: BP 152/65; PULSE 63; RESP 18; O2SAT 94
== END 2023-03-05 13:25 | disposition home health service (06) ==
LOC: ER 20:17 → CSU 22:20
PROVIDERS: Admitting Provider Internal Medicine; Emergency Provider Emergency Medicine; PCP Family Medicine; Visit Provider Internal Medicine
DX: I12.9 Hypertensive chronic kidney disease with stage 1 through stage 4 chronic kidney disease, or unspecified chronic kidney disease; R94.31 Abnormal electrocardiogram [ECG] [EKG]; N18.9 Chronic kidney disease, unspecified; Z87.891 Personal history of nicotine dependence; R07.9 Chest pain, unspecified; Z79.02 Long term (current) use of antithrombotics/antiplatelets; I69.318 Other symptoms and signs involving cognitive functions following cerebral infarction; I69.398 Other sequelae of cerebral infarction; H54.62 Unqualified visual loss, left eye, normal vision right eye; I73.9 Peripheral vascular disease, unspecified; I65.29 Occlusion and stenosis of unspecified carotid artery; R11.10 Vomiting, unspecified; Z79.82 Long term (current) use of aspirin; Z79.899 Other long term (current) drug therapy
CPT/HCPCS: 36415; 71045; 80053; 81001; 83690; 83735; 83880; 84484; 85025; 85610; 87077; 87086; 87186; 93005; 96365; 96367; 96372; 96375; 96376; 99285; G0378; J0360; J0696; J1650; J2405; J3490